=== PATIENT | female | born 1955 ===

== ENCOUNTER 2016-03-13 01:51 | Inpatient (IN) | payer OTHER ==
[2016-03-13] VITALS (8 sets, daily range): BP systolic 105–125; BP diastolic 69–80; PULSE 60–80; RESP 16–20; O2SAT 95–97
--- NOTE | 2016-03-13 04:00 | NUR ---
admission patient admitted. direct admit from [facility]. to room 16 in the ED. placed on remote telemetry. tele SR70's. bp stable. no ectopy. heparin infusing 1000 units / hour . as per physcian orders. patient anxious about plan of care, worried about her son's birthday later today. denies chest pain. up to bsc. gallo urine. purse and clothing at bedside. reviewed fall precautions, npo, and oriented to call medellin and bed. no questions.
[2016-03-13] MEDS ORDERED: CHOL200025 PO (04:16)
[2016-03-13] MEDS ORDERED: SERT25TA2 PO (04:16)
[2016-03-13] MEDS ORDERED: DESV25TA PO (04:16)
[2016-03-13] MEDS ORDERED: LIP40 PO (04:16)
[2016-03-13] MEDS ORDERED: LISI-571 PO (04:16)
[2016-03-13] MEDS ORDERED: Heparin 5,000 Unit/mL Inj IVPUSH ONE (05:30)
--- NOTE | 2016-03-13 05:34 | CONS ---
[address] [address] CONSULTATION REPORT PATIENT: AGUSTINA ETIENNE : 1955 MR# : [id number] ADMIT: 03/13/2016 JOB ID: [id number] CARDIOLOGY CONSULTATION NOTE--INITIAL CRITICAL CARE EVALUATION (EMERGENCY DEPARTMENT): DATE OF SERVICE: Sunday, March 13, 2016. EVALUATING PHYSICIAN: Cardiology--Juancho Muñoz MD. PROBLEMS: 1. Acute Coronary Syndrome (ACS): a. Chest pain--Sudden onset severe chest pain typical of cardiac ischemia. b. NSTEMI--Kth-PG-ceixypbzu myocardial infarction--Elevated troponin T= 3.99. 2. Coronary Artery Disease Risk Factors: a. No history of diabetes. b. History of hypertension--Treatment recently initiated. c. Hypercholesterolemia--Longstanding. d. Family history of premature coronary artery disease, mother and grandmother. e. NonSmoker--History of prior cigarette smoking; discontinued. 3. Other problems: a. Depression--Treated. CHIEF COMPLAINT: "STEMI--"Embedded Software Programmer Activation. HISTORY OF PRESENT ILLNESS: I came to the emergency department to see this 60-year-old woman as she arrived by EMS transfer from [facility] in [place], after transport for STEMI with label maker activation. The patient tells me she has no prior known cardiac history with the exception of a heart catheterization done at [facility] about 20 years ago that she says was done in the setting of high cholesterol; and she understands there was no problem found, and no intervention done. She has been well in the interim. She generally is vigorously active taking care of horses, including carrying hay, as she was today. In general, she has no cardiac symptoms, no effort related symptoms or effort limitation, except mild "asthma," for the last year in the cold weather, which is not limiting but occurs following exertion. PRESENTATION TODAY: She was well until about 3 p.m. this afternoon (12 hours ago) when she noted the onset of severe bandlike retrosternal "tightness," 8-9/10 intensity, while she was carrying hay for her horses. She was somewhat diaphoretic, and noted radiation to her jaw. There were no other associated symptoms of shortness of breath or dizziness. No radiation to the back. The discomfort lasted over 20 minutes, and resolved by the time she got to the emergency department. She had two to recurrent episodes of at least 10 minutes each with minor activities, such as getting up to go to the bathroom in the emergency department. Presently, she is pain free with the exception of mild discomfort of a different sort in her very lateral left-sided chest She was treated so far with ASA and Heparin IV Infusion. CARDIAC: From a cardiac point of view, I do not elicit other symptoms of angina or ischemia. She has no history of heart failure, or current symptoms of heart failure such as nocturnal dyspnea, or edema. She has no history of arrhythmia or current symptoms of arrhythmia such as TachyPalpitations, presyncope, or syncope. Regarding other possible underlying vascular disease, there is no history of CVA, or current symptoms of TIA. No claudication. Regarding possible dual antiplatelet therapy, she has no current bleeding symptoms, no anticipated surgery, and says she would be reliable to take mandatory medicines as needed. ALLERGIES: No known drug allergies. I elicit no allergy to medical contrast; or to seafood, fish or iodine. MEDICATIONS: 1. Pristiq for depression. 2. Lexapro for depression. 3. New medicine for hypertension--She does not know; the record indicates amlodipine. 4. Atorvastatin for hypercholesterolemia--She indicates well tolerated, but she does have substantial chronic neck, and shoulder aching. PAST MEDICAL HISTORY: As above: Trauma--A year ago she fell off a horse and had multiple fractures, including left clavicle, sternum, ribs; and also a concussion. She has recuperated well; but does not aim to go back to riding horses. REVIEW OF SYSTEMS: I questioned her about a 13-point review of systems, which is unremarkable, noncontributory or negative except as noted including: No history of thyroid disorder. No history of lung disorder--Except note question of some asthma induced by cold air in the last year. GI--She recently had an outpatient ultrasound for nausea and diarrhea that has been going on for several months. Otherwise, no history of hepatitis, jaundice, ulcers, or indigestion. PERSONAL AND SOCIAL HISTORY: Cigarettes--She stopped over 10 years ago after a pack a day for some years. No history or symptoms of COPD or chronic bronchitis. Alcohol--Occasional drink; but she reports that in the remote past she used alcohol heavily, but without sequelae; and she does not report withdrawal or DTs. Drugs--She reports in the remote past she used other drugs including cocaine. 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 FAMILY HISTORY: Premature coronary artery disease as noted above in the mother who had a heart attack in her 40s, and grandmother also. PHYSICAL EXAMINATION: General appearance: A very pleasant woman who is comfortable in the emergency department without chest pain. Vital signs: Blood pressure 145/80, note blood pressure as high as 150s earlier. Heart rate is 70, regular in sinus rhythm on telemetry. Respiratory rate 18, nonlabored. SpO2 98% on room air. Weight 230 pounds. Neurologic and mental status: No overt focal neurologic defect noted. She is alert, oriented, appropriate and conversant. HEENT: PERRL. Conjunctivae pink. Sclerae not icteric. Mouth and mucous membranes intact. Neck: Carotid upstroke intact bilaterally without bruit. Jugular venous pressure difficult to assess due to body habitus, but unremarkable. No palpable thyromegaly. No palpable cervical lymphadenopathy. Lungs: Clear to auscultation bilaterally. Note pursed lip breathing on forced expiratory maneuver; and without wheezes. CARDIAC: No chest wall tenderness, but tender over the lateral chest where she has some residual aching, but it does not exactly reproduce her discomfort. Otherwise, cardiac examination notable for S4 gallop. No murmur. Distant heart sounds. Abdomen: Obese, but otherwise unremarkable examination without tenderness, mass, hepatosplenomegaly or bruit of abdominal aortic aneurysm. Extremities: No edema. Pedal pulses intact at the bilateral dorsalis pedis. Note bilateral pulse is strong at the femoral; but at the right femoral there is a continuous murmur raising question of AV fistula. She is not sure if this is the site where she had her cath 20 years ago. DIAGNOSTIC STUDIES: ECG: The admitting ECG tracing here shows sinus rhythm at 87 BPM with a PVC. There are nonspecific ST-T wave changes diffusely, including T-wave inversion in V1 through V6, most prominent 2 mm in V2 and V3. Nonspecific Q-waves in V1/ V2. There is subtle, equivocal ST coving without ST-elevation in V1 through V4. Overall, no diagnostic ST-elevation. Note no confirmatory reciprocal ST-depression. ECG from admission in the [facility] at 15:26 yesterday afternoon, shows sinus rhythm and is unremarkable with the exception of somewhat peaked T-wave only in lead II, and Q-wave in V1 and V2, but no ST elevation. A third EKG from 23:00 on March 12, apparently at the time when elevated troponin was noted, does not have as much T-wave inversion in the anterior leads. Overall impression is abnormal ECG suggestive of ischemia in the anterior leads, but not diagnostic ST-elevation. Chest x-ray: The chest x-ray film is unremarkable from a cardiac point of view ; and without heart failure. LABORATORY: Current laboratory is pending. I reviewed the labs from [facility]: CBC includes WBC 8800, hemoglobin 12.9, hematocrit 39.5, normal indices, and platelet count 232,000. Chemistries include potassium 4.0, creatinine 0.7, BUN 12, glucose 92. LFT unremarkable. Initial CK total 77, with troponin I less than 0.05. BNP not elevated at 30. Subsequent troponin T elevated 3.99. D-dimer less than 0.27. ASSESSMENT: I discussed my findings, impressions and management considerations with the patient, as well as with her son and tksykain-py-iha(cop); and with the Hospitalist Service, Dr. Gutiérrez; and with the emergency department physician, includin). ACS--Acute coronary syndrome, xbu-TV-wejwuhh elevation myocardial infarction: This patient presented today with acute chest discomfort consistent with coronary ischemia. She has developed elevated troponin. There is a high likelihood of underlying active coronary disease. She was transferred emergently with a question of ST-elevation. The records available do not show ST-elevation. She is pain free and clinically stable now. ECG hints LAD territory ischemia. I discussed with her and her family the recommendation to be admitted to the hospital for urgent management of likely coronary disease. Management will include optimal medical therapy; and plan for early invasive approach with early catheterization. Cath: I discussed the catheterization procedure with them, including we discussed the benefit of catheterization to include definitive diagnosis and to guide treatment options, including medical therapy Intervention which is likely, and possible bypass surgery. We discussed possible risks and complications including bleeding, infection, blood clots; as well as injury to nerve, artery, vein, or kidney; and also arrhythmia, drug reaction--or Others. We discussed treatment as needed including surgery, pacemaker, transfusion. We discussed more serious complications that are possible including stroke, heart attack, , and emergency surgery including transfer for bypass surgery. We discussed PCI and Stents including need for repeat procedures; and mandatory DAPT. We did not sign informed consent in the emergency department currently. RECOMMENDATIONS: 1. Admit to Hospitalist Service. 2. OMT--Optimal medical therapy: Aspirin, IV heparin, statin, beta-anibal. Hold JAZMIN inhibitor currently prior to catheterization. 3. Echocardiogram in a.m. 4. Doppler ultrasound right leg early--considering femoral arteriovenous fistula. 5. Plan Cath, and anticipate PCI likely, in AM. AFIA
[2016-03-13] MEDS ORDERED: Polyethylene Glycol (PEG) 17 Gm Powder PO PRN (05:40)
[2016-03-13] MEDS ORDERED: Ondansetron 2 mg/mL 2 mL Inj IVPUSH PRN (05:40)
[2016-03-13] MEDS ORDERED: Alum-Mag Hydrox-Simeth 30 mL Suspension PO PRN (05:40)
[2016-03-13] MEDS ORDERED: Heparin 5,000 Unit/mL Inj IVPUSH PRN (05:45)
--- NOTE | 2016-03-13 05:51 | NUR ---
medication clarification spoke with dr oracio sandoval. hold heparin 5000 unit bolus. do not change current heparin rate (1000units) . wait until 1000am check. care ongoing
[2016-03-13] MEDS: Heparin 5,000 Unit/mL Inj IVPUSH PRN ×3 (06:09→22:08)
[2016-03-13 06:35] LABS: APPEARANCE,URINE CLEAR (CLEAR,HAZY); COLOR,URINE YELLOW (YELLOW); OCCULT BLOOD,URINE TRACE (NEGATIVE); UROBILINOGEN,URINE NORMAL (NORMAL)
[2016-03-13] MEDS: Heparin 25K Unit/500mL 0.45 NS 25,000 UNIT in IV Premix 1 EACH IV SCH ×2 (06:49→11:04)
--- NOTE | 2016-03-13 06:55 | NUR ---
communication dr oliveros called. ordered complete echo and ultrasound of right leg prior to laborer [place] this am. ordered echo as stat and called to nursing code enforcement supervisor left voice messages at departments Addendum: 03/13/16 at 0744 by BRI CARRILLO RN passed on to day heide abarca re echo stat. left messages with echo pagerKimo abarca will call cardiology water commissioner. Addendum: 03/13/16 at 0747 by BRI CARRILLO RN spoke to security technician. they will be here first to complete ultrasound of leg
--- NOTE | 2016-03-13 07:16 | PCM.HPMED ---
Subjective Date of Service Mar 13, 2016 Primary Provider: Admitting Physician: Matthew Feliz MD [facility] Attending Physician: Juan Carlos Gutiérrez MD Chief Complaint: chest pain History of Present Illness: Patient is a 60 year old female with a pmh of hyperlipidemia, hypertension, and depression that is presenting with a one day history of chest pain. Patient was moving hay in her yard when she had to stop due to overwhelming feelings of nausea. Patient went in her house and began to have intense chest pressure with pain radiating to her jaw and her arm. Patient became worried that this is something significant and called EMS to bring her to the hospital. Patient was moved to [facility] and patient was evaluated. Patient was not seen to have any EKG changes that would suggest acute ischemia. Patient additionally had a negative troponin level. Patient was monitored while an in patient, and when a second troponin was obtained the value was seen to be higher than the previous. This prompted the hospitalist from [facility] to call [facility] for transfer under the presumption that the patient had a STEMI. Patient was transferred here seen, to have a troponin level of .3 and no major ekg changes. Patient was seen by cardiology and the decision to admit the patient was made. The patient is currently stable, has no significant chest pain and is resting comfortably. Review of Systems: Patient has complaints of chest pressure, nausea, jaw pain, constipation and arm pain. Patient was denies any other symptoms when asked including headaches, oral pain , neck pain, shortness of breath. change in mentation, vomiting, diarrhea, joint pain, or urinary tract symptoms Allergies Coded Allergies: No Known Allergies (Unverified , 03/13/16) Home Medications atorvastatin 40 mg daily cholecalciferol 2000 units Desvenlafaxine succinate 25 mg daily lisinopril 5 mg daily sertraline 25 mg daily PMH hypertension hyperlipidemia depression Surgical History bilateral arthroscopies breast augmentation Family History negative for premature cardiac , no other relevent medical history Social History Hx Alcohol Use: Yes Alcoholic Drinks Per Day: 2-3/ounces monthly Hx Substance Use: No Exam Vital Signs Vital Sign - Last Date Time Temp Pulse Resp B/P Pulse Ox O2 Delivery O2 Flow Rate FiO2 03/13/16 05:16 74 03/13/16 04:30 36.5 16 125/80 97 Room Air Intake and Output 03/12/16 03/12/16 03/13/16 Cumulative From/Thru 15:00 23:00 07:00 03/13/16 04:42 - 03/13/16 04:50 Output Total 450 ml 450 ml Balance -450 ml -450 ml Output Urine Total 450 ml 450 ml Exam HEENT: NCAT, PERRLA, normal oral mucosa, no neck masses or ln CV: S1 and S2 noted, no murmurs rubs or gallops. Patient has a right femoral bruit present Pulm: CTA BL, no wheezes or ronchi, no cough Abd: Soft nontender, no masses or trauma noted Ext: Normal sensation and motor abilities, no edema noted Neuro: AAOX3, no focal neurological deficits seen, normal gait and motor ability Psych: No psychiatric symptoms upon questioning except for controlled depression Lab and Diagnostics Labs Pts labs from [facility] reviewed, no abnormalities noted except for an elevated troponin T of 3.1 X-Rays, CTs and MRIs Chest xray reviewed: No pathology noted 12-lead ECG EKG: NSR no evidence of st elevations 75 bpm Assessment & Plan Patient is a 60 year old female that is presenting with a one day history of chest pain, patient was subsequently transferred from [facility] for increased level of care. Patient is currently stable on heparin drip. Chest pain/NSTEMI - Patient has evidence of nstemi with no major ekg changes noted and an elevated troponin level - Patient evaluated by cardiology during the night due to the possibilty of STEMI - Will place the patient on heparin gtt, with q6 hour monitoring of ptt - will begin aspirin, high dose statin and beta anibal - will continue to trend troponins - Cardiology anticipating catherizing the patient in the afternoon - will hold tio-i for the time being Hypertension - Will hold amlodopine and lisinopril in favor of beta anibal for the time begin - will begin 12.5 mg daily given low bp and HR - will continue to trend bp Hyperlipidemia - Patient has an established diagnosis of hyperlipidemia - will start atorvastatin 80 mg Depression - patient has an established history of depression - pt has taken her medication for the day - will hold medication temporarily and resume after catherization Juan Carlos Gutiérrez MD Mar 13, 2016 06:41
[2016-03-13] MEDS: 0.9% Sodium Chloride 1,000 ML IV SCH ×2 (07:20→17:24)
[2016-03-13 07:44] LABS: BASOPHILS % (AUTO) 0.5 % (0-3); EOSINOPHILS % (AUTO) 1.7 % (0-5); MONOCYTES % (AUTO) 10.2 % (4-12); Mean Corpuscular Hemoglobin 28.6 pg (27.0-35.0); Mean Corpuscular Volume 86.1 fL (81-100); NEUTROPHILS % (AUTO) 57.2 % (40-74); Platelet Count 222 bil/L (150-400)
--- NOTE | 2016-03-13 08:42 | DRSVH ---
PROCEDURE: X-RAY CHEST ONE VIEW, PORTABLE ([id number]) INDICATIONS: 60 year-old female with chest pain. TECHNIQUE: One view of the chest was acquired. COMPARISON: None. FINDINGS: Surgical changes and devices: None. Lungs and pleura: No pleural effusions or pneumothorax. Lungs are clear, except for several calcifi ed bilateral pulmonary granulomas. Mediastinum: Mediastinal contours appear normal. Heart size is normal. Bones and chest wall: No suspicious bony lesions. Nonacute left third through fifth rib fractures a re present. Acute lateral left clavicle fracture is also present, with mild displacement. Overlying s oft tissues appear unremarkable. IMPRESSION: 1. No acute cardiopulmonary disease. Pulmonary remote granulomatous disease. 2. Acute lateral left clavicle fracture, as well as several nonacute left lateral rib fractures. Dictated by: Skyler Arredondo M.D. on 03/13/2016 at 8:40 Approved by: Skyler Arredondo M.D. on 03/13/2016 at 8:40
--- NOTE | 2016-03-13 09:40 | DRSVH ---
[facility] [address] [place] [address] Echocardiogram Report Name: AGUSTINA ETIENNE KStudy Date: Height: 69 in Hospital Exam Location: [facility] Weight: 231 lb Gender: Female BSA: 2.2 m2 : 1955 Age: 60 yrs BP: 113/79 mm Hg Reason For Study: Angina Performed By: Sangita Hill Referring Physician: HARDY THOMPSON Interpretation Summary Normal sinus rhythm. Normal LV size, wall thickness. There is basal anteroseptal, mid- anteroseptal, distal septal and apical akinesis. Other segments show normal wall motion. EFis 55-60%. Stage I diastolic dysfunction. No significant valvular abnormalities. No prior study available for comparison Procedure: A two-dimensional transthoracic echocardiogram with color flow and Doppler was performed. The study quality was technically adequate. There is no prior echocardiogram noted for this patient. The patient was in normal sinus rhythm during the exam. Left Ventricle: The left ventricle is normal in size. There is normal left ventricular wall thickness. The ejection fraction is estimated to be 50-55%. There is apical inferior wall akinesis. There is apical akinesis. There is apical septal wall akinesis. The E/A ratio is reversed, suggesting impaired early relaxation of the left ventricle or a reduced preload state. Right Ventricle: The right ventricle is normal in size and function. Atria: The left atrium is moderately dilated. The right atrium is mildly dilated. The interatrial septum is intact with no evidence for an atrial septal defect. Mitral Valve: The mitral valve leaflets appear borderline thickened, but open well. There is trace mitral regurgitation. Aortic Valve: The aortic valve is trileaflet. The aortic valve opens well. There is trace aortic regurgitation. Tricuspid Valve: The tricuspid valve leaflets are thin and pliable. There is moderate to severe tricuspid regurgitation. The right ventricular systolic pressure is estimated at 41 mmHg assuming a right atrial pressure of 3 mm Hg. Pulmonic Valve: The pulmonic valve is normal in structure and function. There is trace pulmonic regurgitation. Great Vessels: The aortic root is mildly dilated. The ascending aorta is moderately enlarged. The IVC is of normal diameter and collapses greater than 50% with a sniff. This suggests a low right atrial pressure of 3 mm Hg. Pericardium/ Pleura There is no pericardial effusion. There is no pleural effusion. MMode/2D Measurements & Calculations LVIDd: 4.9 cm LA dimension: 3.8 cm RA long axis Ao root diam: 3.9 cm LVIDs: 3.0 cm Aortic Jxn: 3.6 cm FS: 38.0 % LA A2 area: 27.7 cm RA area asc Aorta Diam IVSd: 0.85 cm LA A4 area: 27.8 cm LVPWd: 0.61 cm LA length (vol) : 25.8 cm Ao Arch Diam RA vol (Proximal trans.) LA vol: 102.3 ml : 82.7 ml LA vol index RA : 37.7 mm2 IVC diam: 2.0 cm LV phipps. diameter/BSALV sys. diameter/BSA (cm/m^2): 2.2 (cm/m^2): 1.4 Doppler Measurements & Calculations Ao V2 max MV E max jose e MV E/A: 0.79 TR max jose e : 134.6 cm/sec : 60.6 cm/sec Med Peak E' Jose E : 310.0 cm/sec Ao max PG MV A max jose e TR max PG : 7.2 mmHg : 77.0 cm/sec E/E' med: 12.0 : 38.4 mmHg Ao mean PG MV P1/2t: 52.2 msec Lat Peak E' Jose E PA V2 max : 4.1 mmHg : 91.2 cm/sec E/E' lat: 6.0 PA mean PG PA Accel Time : 0.14 sec MV dec time MV P1/2t max jose e Ao V2 mean PA V2 mean : 0.18 sec : 97.6 cm/sec : 60.3 cm/sec Ao V2 VTI: 32.5 cm MVA(P1/2t): 4.2 cm2 Reading Physician:09:40 AM
[2016-03-13] MEDS ORDERED: Heparin 1,000 Unit/mL 10 mL Inj ONE ×2 (10:17→11:44)
[2016-03-13] MEDS ORDERED: Heparin 5,000 Units/500 mL NS Premix IV ONE ×2 (10:17→11:44)
[2016-03-13] MEDS ORDERED: Nitroglycerin 50,000 mcg/250 mL D5W Premix IV ONE ×2 (10:17→11:44)
[2016-03-13] MEDS ORDERED: 0.9% Sodium Chloride 0 ML ONE (10:18)
[2016-03-13] MEDS ORDERED: Heparin 1,000 Units/500 mL NS Premix IV ONE ×2 (10:20→11:44)
--- NOTE | 2016-03-13 10:39 | NUR ---
Social Work note - Initial Assessment Venessa Pulido is a 60 yr old who was transferred from [facility] for Non Stemi. EMR reviewed: Pt has Group Health insurance, her PCP is Adalgisa Rowell at [facility]. Readmit score not available. See attached CM initial assessment. [employer] met with pt - introduced D/C planning and explained SW role. Pt lives at home with her son and daughter in law. She is independent at baseline, no DME. She plans to go home at d/c with no anticipated needs. She does not have a DPOA - [employer] provided paperwork and educated on filling it out. She states she will talk with her family about it and will provide copies in the future. No needs identified. [employer] will follow if needs arise. Plan: Home with transportation provided by family - no needs identified. HILLARY Harp Addendum: 03/13/16 at 1042 by ROSANGELA CARDONA SS Amended: Links added.
[2016-03-13] MEDS ORDERED: fentaNYL-PF 50 mCg/mL 2 mL Inj ONE (10:41)
--- NOTE | 2016-03-13 10:54 | DRSVH ---
PROCEDURE: US DUPLEX DOPPLER UNILATERAL LEG ARTERIES, RIGHT INDICATIONS: bruit over the femoral artery TECHNIQUE: Color and pulse Doppler interrogation was performed of the right lower extremity arterial system, wit h image documentation. COMPARISON: None. FINDINGS: Vascular Ultrasound Procedure Report Findings(Artery of Lower Extremity)(Right) Common Femoral Artery(Distal) Velocity: 74 cm/s Profunda Femoris Artery(Proximal) Velocity: 71 cm/s Superficial Femoral Artery(Proximal) Velocity: 73 cm/s Superficial Femoral Artery(Mid-longitudinal) Velocity: 79 cm/s Superficial Femoral Artery(Distal) Velocity: 76 cm/s Popliteal Artery(Mid-longitudinal) Velocity: 65 cm/s Posterior Tibial Artery(Distal) Velocity: 81 cm/s Dorsalis Pedis Artery(Distal) Velocity: 109 cm/s The common femoral artery demonstrates low resistant flow pattern with increased diastolic velocity. There is a connection between the common femoral artery and most likely the common femoral vein just above the femoral artery bifurcation, consistent with AV fistula. IMPRESSION: 1. 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 2. No high-grade arterial stenosis in the right lower extremity. Dictated by: Cherelle Nieto M.D. on 03/13/2016 at 10:52 Approved by: Cherelle Nieto M.D. on 03/13/2016 at 10:52
[2016-03-13] MEDS ORDERED: hydrALAZINE 20 mg/mL Inj ONE (11:35)
[2016-03-13] MEDS ORDERED: 0.9% Sodium Chloride 1,000 ML ONE (11:44)
--- NOTE | 2016-03-13 13:18 | DRSVH ---
PROCEDURE: CT ANG CHEST/ABD W/WO CONTRAST ([id number]) INDICATIONS: chest pain TECHNIQUE: Precontrast 5 mm thick sections acquired from the lung apices to the iliac crests. After the adminis tration of intravenous contrast, 3 mm thick sections again acquired from the lung apices to the iliac crests. 3-dimensional maximum intensity projection (MIP) oblique sagittal and coronal reformats wer e then acquired, and/or 3-dimensional volume rendering reformats. For radiation dose reduction, the following was used: automated exposure control. COMPARISON: None. FINDINGS: Image quality: Excellent. AORTA: There is no evidence of dissection within the thoracic or abdominal aorta. There is mild aneurysmal d ilation of the ascending thoracic aorta measuring 45 mm in greatest transverse dimension. The abdomin al aorta demonstrates mild scattered areas of wall calcification consistent with atherosclerotic dise ase. No abdominal aortic aneurysmal dilation. CHEST: Lungs and pleura: No acute airspace opacities. No pleural effusions or pneumothorax. Central and p eripheral airways are patent and normal in caliber. Calcified granuloma is present along the right m inor fissure, as well as the posterior left upper lobe.. Mediastinum: Heart size is normal. No pericardial effusion. No mediastinal or hilar adenopathy by size criteria. Central pulmonary arteries are normal in size. Esophagus is normal in caliber. No h iatal hernias. Bones and chest wall: No axillary adenopathy by size criteria. Thyroid gland is unremarkable. No s uspicious bony lesions. No vertebral body compression fractures. ABDOMEN: Vasculature: Celiac trunk and mesenteric arteries are patent. Renal arteries are also patent. Solid organs: Liver and spleen are normal in size. Hepatic steatosis is present. Gallbladder has bee n removed. Biliary system is non dilated. Pancreas enhances normally. No adrenal nodules. Both ki dneys are normal in size and enhancement, without hydronephrosis. Peritoneum and bowel: No free fluid or air. Bowel loops are normal in caliber and wall thickness. Nodes and vessels: No retroperitoneal or mesenteric adenopathy by size criteria. Inferior vena cava is normal in morphology. Bones: No suspicious bony lesions. No vertebral body compression fractures. Miscellaneous: No ventral hernias. IMPRESSION: 1. No evidence of aortic dissection. 2. Mild aneurysmal dilation of the ascending thoracic aorta as above. The above findings were discussed with Dr. Muñoz on 03/13/16 at 1:10 PM. Dictated by: Taylor Fernandez M.D. on 03/13/2016 at 13:16 Approved by: Taylor Fernandez M.D. on 03/13/2016 at 13:16
--- NOTE | 2016-03-13 15:49 | PROG NOTE ---
[address] [address] PROGRESS NOTE PATIENT: AGUSTINA ETIENNE : 1955 MR#: [id number] ADMIT: 03/13/2016 JOB ID: [id number] CARDIOLOGY PROGRESS NOTE -- FOLLOW-UP INPATIENT CONSULTATION: DATE: Sunday, March 13, 2016. EVALUATING PHYSICIAN: Cardiology -- Juancho Muñoz MD. PROBLEMS: ACS NSTEMI. SUBJECTIVE: I saw this 60-year-old woman on cardiology rounds this morning after she was admitted about 6 hours ago. Overall, in the interim, her clinical status has been satisfactory, and she has been stable. No further chest discomfort, or clinical ischemic issues. She remains on medical therapy including IV heparin, aspirin, statin and beta-anibal. OBJECTIVE: She is comfortable, pleasant, remains boarding in the emergency department. EXAM: Vital signs stable with blood pressure 124/71, heart rate 64 and regular, in sinus on telemetry. Physical examination otherwise unchanged and unremarkable including regarding heart and lungs. ELECTROCARDIOGRAM: The follow-up ECG this morning is similar but the nonspecific anterior STT abnormalities are less prominent. LABORATORY: Fpollowup labs after admission here include satisfactory CBC; and satisfactory chemistry profile. Note total CK only 170, with CK-MB 10.1, and troponin 0.293 c/w clinical impression of NSTEMI. ECHOCARDIOGRAM: I reviewed the echo images preliminarily. She has intact LV size and low normal/borderline global LV systolic ejection fraction, with ejection fraction about 50% to 55%. There is a wall motion defect with hypokinesis and akinesis of the apex, distal inferior wall; and mid to distal septum -- consistent with the anticipated LAD distribution of her ischemia. No significant valvular disease. Note moderate aortic dilatation with maximum diameter of the ascending aorta 4.6 cm. ULTRASOUND OF RIGHT LOWER EXTREMITY: The report of the procedure confirms the clinical impression of right femoral AV fistula. Suspect it may be from her catheterization procedure years ago. IMPRESSION: I discussed her status today and our plans going forward--with her and with her sister who was present--includin. [id number] myocardial infarction -- clinically stable on optimal medical therapy. 2. Right femoral arteriovenous fistula. 3. Aortic root dilatation. I discussed with her plan to do a CT angiogram of the aorta to assess for maximum aortic dilatation and to rule out acute dissection in view of her presentation with severe chest discomfort which did not otherwise clinically raise specific suspicion of dissection. I discussed with Radiology who tells me substantial contrast will be needed( 200cc). Will plan to defer catheterization from today to tomorrow as long as she remains stable; or to proceed earlier if her clinical status changes. RECOMMENDATION: 1. Catheterization and anticipated coronary intervention in a.m. 2. CT angiogram today. 3. CT angiogram -- I reviewed with Radiology the maximum diameter of the aorta is 4.5 cm. No aortic dissection. Discussed with the Hospitalist Service. AFIA
--- NOTE | 2016-03-13 16:02 | NUR ---
transfer to [facility] report called to Christine Campos RN at 1500hrs. transferred to room 2021 at 1555hrs. Tele box placed on patient. patient denies CP/SOB.
--- NOTE | 2016-03-13 17:47 | NUR ---
Heparin gtt/ambulation Patient arrived to unit in a stable condition. Vital signs within normal limits, patient on RA, no reports of pain, no n/v/d/c or abdominal pain, alert and oriented x3, independent in room, uses call light appropriately. Heparin gtt currently infusing at 1125 units per hour per protocol. No signs of bleeding noted. 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
--- NOTE | 2016-03-13 17:48 | PCM.PNMED ---
Subjective Date of Service Mar 13, 2016 Subjective Venessa Pulido is a 60 year old female with a history of hypertension, hyperlipidemia and depression transferred from [facility] for elevated troponin and possible NSTEMI. Hospital day #1. Patient is resting comfortably and somewhat frustrated that she remains in the Emergency Department, as there are no available beds on the floor. Currently she is without chest pain or palpitations and denies shortness of breath, headache, fever, chills, GI or symptoms. Plan for CT angio to evaluate aortic aneurysm and plan for cardiac cath tomorrow. Exam Vital Signs Vital Sign - Last Date Time Temp Pulse Resp B/P Pulse Ox O2 Delivery O2 Flow Rate FiO2 03/13/16 05:16 74 03/13/16 04:30 36.5 16 125/80 97 Room Air Intake and Output 03/12/16 03/12/16 03/13/16 Cumulative From/Thru 15:00 23:00 07:00 03/13/16 04:42 - 03/13/16 04:50 Output Total 450 ml 450 ml Balance -450 ml -450 ml Output Urine Total 450 ml 450 ml Exam General: No acute distress, well-developed, well-nourished, appropriately interactive HEENT: Normocephalic, atraumatic. PERRLA, Anicteric sclerae, moist mucosa. Neck: Supple, nontender, no jugular venous distension, no bruits, no lymphadenopathy or thyromegaly. Cardiovascular: Regular rate and rhythm with no murmurs, rubs, or gallops appreciated Pulmonary: Clear to auscultation bilaterally with no crackles, wheezes, or rhonchi. Normal respiratory effort with no use of accessory muscles. Abdomen: Bowel tones present. Soft, nontender, nondistended. No hepatosplenomegaly or masses appreciated. Extremities: No clubbing, cyanosis, edema, or lymphadenopathy appreciated. Skin: Normal temperature, turgor, and texture; no rash, ulcers, or subcutaneous nodules appreciated. Neurological: Cranial nerves grossly intact. Normal muscle strength, tone, and bulk. No known gait impairment. Psychiatric: Normal mood and affect. Alert and oriented to person, place, and time. IVs and Medications Medications Reviewed: Medications were reviewed in detail Lab and Diagnostics Urine Color Yellow, Urine Appearance Clear, Urine pH 6.0, Urine Specific [place] 1.015, Urine Protein Negative, Urine Glucose (UA) Negative, Urine Ketones Negative, Urine Occult Blood Trace, Urine Nitrite Negative, Urine Bilirubin Negative, Urine Urobilinogen Normal, Urine Leukocyte Esterase Small, Urine RBC 3-10, Urine WBC 11-50, Urine Epithelial Cells Moderate, Urine Crystals None seen, Urine Bacteria None, Urine Hyaline Casts None, Urine Granular Casts None seen, Urine Waxy Casts None seen, Urine Red Blood Cell Casts None seen, Urine White Blood Cell Casts None seen, Urine Mucus Present, Urine Trichomonas None seen, Urine Yeast None, Urine Culture Reflexed Indicated , Hold Urine Received White Blood Count 7.5, Red Blood Count 4.40, Hemoglobin 12.6, Hematocrit 37.9, Mean Corpuscular Volume 86.1, Mean Corpuscular Hemoglobin 28.6, Mean Corpuscular Hemoglobin Concent 33.2, Red Cell Distribution Width 13.0, Platelet Count 222, Neutrophils (%) (Auto) 57.2, Lymphocytes (%) (Auto) 30.3, Monocytes ( %) (Auto) 10.2, Eosinophils (%) (Auto) 1.7, Basophils (%) (Auto) 0.5 Sodium Level 140, Potassium Level 4.3, Chloride Level 103, Carbon Dioxide Level 25, Blood Urea Nitrogen 9, Creatinine 0.60, Estimat Glomerular Filtration Rate 146, Glucose Level 98, Calcium Level 8.8, Total Bilirubin 0.8, Aspartate Amino Transf (AST/SGOT) 40, Alanine Aminotransferase (ALT/SGPT) 35, Alkaline Phosphatase 64, Total Creatine Kinase 170, Creatine Kinase MB 10.1, Creatine Kinase MB % 5.9, Total Protein 7.1, Albumin 3.8, Hold Robertson Top Tube Received Activated Partial Thromboplast Time 56.5, Troponin T 0.208 Result Diagram: 03/13/16 0725 Microbiology Urine culture pending. X-Rays, CTs and MRIs X-RAY CHEST ONE VIEW, PORTABLE (03/13/16) IMPRESSION: 1. No acute cardiopulmonary disease. Pulmonary remote granulomatous disease. 2. Acute lateral left clavicle fracture, as well as several nonacute left lateral rib fractures. Dictated and approved by: Skyler Arredondo M.D. on 03/13/2016 at 8:40 US DUPLEX DOPPLER UNILATERAL LEG ARTERIES, RIGHT (03/13/16) IMPRESSION: 1. 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 2. No high-grade arterial stenosis in the right lower extremity. Dictated and approved by: Cherelle Nieto M.D. on 03/13/2016 at 10:52 CT ANG CHEST/ABD W/WO CONTRAST (03/13/16) IMPRESSION: 1. No evidence of aortic dissection. 2. Mild aneurysmal dilation of the ascending thoracic aorta as above. The above findings were discussed with Dr. Muñoz on 03/13/16 at 1:10 PM. Dictated and approved by: Taylor Fernandez M.D. on 03/13/2016 at 13:16 12-lead ECG EKG: NSR no evidence of st elevations 75 bpm Cardiac Echo Impressions ECHOCARDIOGRAM REPORT (03/13/16) INTERPRETATION SUMMARY: - Normal sinus rhythm. - Normal LV size, wall thickness. There is basal anteroseptal, mid-anteroseptal , distal septal and apical akinesis. Other segments show normal wall motion. EFis 55-60%. Stage I diastolic dysfunction. - No significant valvular abnormalities. - No prior study available for comparison Assessment & Plan Venessa Pulido is a 60 year old female with a history of hypertension, hyperlipidemia and depression transferred from [facility] for elevated troponin and possible NSTEMI. Hospital day #1. 1. Possible NSTEMI, acute. present on admission. Active. -Patient's CAD risk factors: hypertension, hyperlipidemia, and family Hx of premature CAD -Elevated troponin (3.9) and ECG suggestive of ischemia in the anterior leads, but not diagnostic ST-elevation. -Started on heparin drip with q6h monitoring of PTT. -Hold ACEi prior to cath and continue aspirin, statin, beta anibal. -Continue to trend troponins -Cardiology consulted and following. Possible catheterization this afternoon. -Echocardiogram and venous doppler ultrasound today 2. Chronic Hypertension, present on admission. Active -Hold amlodopine and lisinopril in favor of beta anibal -Continue with 12.5mg daily due to low BP and HR. 3. Chronic Hyperlipidemia, present on admission. Active. -Patient has an established diagnosis of hyperlipidemia -Continue Atorvastatin 80mg daily. 4. Chronic Depression, present on admission. Active. -Resume home dosing of medications following cardiac cath -Home medication- Sertraline, 25mg daily and Desvenlafaxine succinate 25mg daily. Acetaminophen-fever/headache/mild/moderate pain Antiemetics, as needed Bowel regimen, as needed. Disposition: Anticipated discharge in 1-2 days pending cardiac cath. Pain Evaluation: Adequate Pain Control VTE Prophylaxis: SCDs Resuscitation Status: CPR: Attempt Resuscitation Attending Statement The patient was seen and examined together with Dr. Gates on 03-13-16 and I agree with the history, exam and plan as outlined in the note above. Kavitha Gates DO Mar 13, 2016 08:24 Barron Carlin MD Mar 14, 2016 15:16
[2016-03-14] VITALS (35 sets, daily range): BP systolic 91–134; BP diastolic 46–80; PULSE 56–80; RESP 10–20; O2SAT 92–99
[2016-03-14 03:33] LABS: BASOPHILS % (AUTO) 0.5 % (0-3); EOSINOPHILS % (AUTO) 3.6 % (0-5); MONOCYTES % (AUTO) 10.6 % (4-12); Mean Corpuscular Hemoglobin 28.8 pg (27.0-35.0); Mean Corpuscular Volume 87.1 fL (81-100); NEUTROPHILS % (AUTO) 46.5 % (40-74); Platelet Count 201 bil/L (150-400)
[2016-03-14] MEDS: 0.9% Sodium Chloride 1,000 ML IV SCH ×3 (04:04→23:03)
[2016-03-14] MEDS: Heparin 25K Unit/500mL 0.45 NS 25,000 UNIT in IV Premix 1 EACH IV SCH (05:09)
--- NOTE | 2016-03-14 06:25 | NUR ---
Shift Note 7p-7a No c/o chest pain, Tele SR 60-70s per Fixing Machine Operator. VS stable and afebrile. Pt up independently in room, gait steady, denies dizziness or lightheadedness while up. Pt compliant with NPO status after midnight for planned Heart Cath this AM. IV Heparin drip infusing per protocol and within therapeutic limits. IV NS infusing per MD orders. Pt given Heart Cath booklets for education on procedure.
[2016-03-14] MEDS: DESVENLAFAXINE 25 MG PO SCH (08:30)
[2016-03-14] MEDS ORDERED: 0.9% Sodium Chloride 1,000 ML ONE (10:16)
[2016-03-14] MEDS ORDERED: Heparin 1,000 Units/500 mL NS Premix IV ONE ×2 (10:16→11:38)
[2016-03-14] MEDS ORDERED: Heparin 5,000 Units/500 mL NS Premix IV ONE ×3 (10:16→12:56)
[2016-03-14] MEDS ORDERED: fentaNYL-PF 50 mCg/mL 2 mL Inj ONE ×4 (10:37→14:20)
[2016-03-14] MEDS ORDERED: Nitroglycerin 50,000 mcg/250 mL D5W Premix IV ONE (11:02)
[2016-03-14] MEDS ORDERED: Heparin 1,000 Unit/mL 10 mL Inj ONE (11:32)
[2016-03-14] MEDS ORDERED: NitroPRUSSIDE 25,000 mCg/mL 2 mL Inj IV ONE (13:06)
[2016-03-14] MEDS ORDERED: Dextrose 5% 250 ML IV ONE (13:06)
[2016-03-14] MEDS ORDERED: 0.9% Sodium Chloride 500 ML ONE (13:13)
--- NOTE | 2016-03-14 14:14 | PCM.PNMED ---
Subjective Date of Service Mar 14, 2016 Subjective Venessa Pulido is a 60 year old female with a history of hypertension, hyperlipidemia and depression transferred from [facility] for elevated troponin and possible NSTEMI. Hospital day #2 No acute events overnight. Per nursing, patient asymptomatic overnight with normal sinus on telemetry and NPO after midnight for cardiac catheterization this morning. Today, patient is resting comfortably and appears somewhat nervous about the cardiac cath this morning. She states that she has remained asymptomatic and without chest pain or back pain, palpitations, shortness of breath, nausea or diaphoresis since prior to admission. Exam Vital Signs Vital Sign - Last Date Time Temp Pulse Resp B/P Pulse Ox O2 Delivery O2 Flow Rate FiO2 03/14/16 13:45 62 11 107/61 96 Room Air 03/14/16 09:59 36.7 Intake and Output 03/13/16 03/13/16 03/14/16 Cumulative From/Thru 15:00 23:00 07:00 03/13/16 04:42 - 03/14/16 04:38 Intake Total 1402 ml 1509 ml 2911 ml Output Total 550 ml 1450 ml 2450 ml Balance 852 ml 59 ml 461 ml Intake Oral 400 ml 600 ml 1000 ml IV Total 1002 ml 909 ml 1911 ml Output Urine Total 550 ml 1450 ml 2450 ml # Bowel Movements 1 0 1 Exam General: No acute distress, well-developed, well-nourished, appropriately interactive HEENT: Normocephalic, atraumatic. PERRLA, Anicteric sclerae, moist mucosa. Neck: Supple, nontender, no jugular venous distension, no bruits, no lymphadenopathy or thyromegaly. Cardiovascular: Regular rate and rhythm with no murmurs, rubs, or gallops appreciated Pulmonary: Clear to auscultation bilaterally with no crackles, wheezes, or rhonchi. Normal respiratory effort with no use of accessory muscles. Abdomen: Bowel tones present. Soft, nontender, nondistended. No hepatosplenomegaly or masses appreciated. Extremities: No clubbing, cyanosis, edema, or lymphadenopathy appreciated. Skin: Normal temperature, turgor, and texture; no rash, ulcers, or subcutaneous nodules appreciated. Neurological: Cranial nerves grossly intact. Normal muscle strength, tone, and bulk. No known gait impairment. Psychiatric: Normal mood and affect. Alert and oriented to person, place, and time. IVs and Medications Medications Reviewed: Medications were reviewed in detail Lab and Diagnostics Troponin T 0.175 White Blood Count 5.9, Red Blood Count 4.17, Hemoglobin 12.0, Hematocrit 36.3, Mean Corpuscular Volume 87.1, Mean Corpuscular Hemoglobin 28.8, Mean Corpuscular Hemoglobin Concent 33.1, Red Cell Distribution Width 13.2, Platelet Count 201, Neutrophils (%) (Auto) 46.5, Lymphocytes (%) (Auto) 38.6, Monocytes ( %) (Auto) 10.6, Eosinophils (%) (Auto) 3.6, Basophils (%) (Auto) 0.5 Sodium Level 142, Potassium Level 4.1, Chloride Level 106, Carbon Dioxide Level 22, Blood Urea Nitrogen 11, Creatinine 0.56, Estimat Glomerular Filtration Rate 158, Glucose Level 103, Calcium Level 9.1, Total Bilirubin 0.5, Aspartate Amino Transf (AST/SGOT) 34, Alanine Aminotransferase (ALT/SGPT) 33, Alkaline Phosphatase 59, Total Protein 6.0, Albumin 3.4 Activated Partial Thromboplast Time 47.1 Result Diagram: 03/14/16 0320 03/14/16 0320 Microbiology Urine culture growing Group B Streptococcus. X-Rays, CTs and MRIs X-RAY CHEST ONE VIEW, PORTABLE (03/13/16) IMPRESSION: 1. No acute cardiopulmonary disease. Pulmonary remote granulomatous disease. 2. Acute lateral left clavicle fracture, as well as several nonacute left lateral rib fractures. Dictated and approved by: Skyler Arredondo M.D. on 03/13/2016 at 8:40 US DUPLEX DOPPLER UNILATERAL LEG ARTERIES, RIGHT (03/13/16) IMPRESSION: 1. 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 2. No high-grade arterial stenosis in the right lower extremity. Dictated and approved by: Cherelle Nieto M.D. on 03/13/2016 at 10:52 CT ANG CHEST/ABD W/WO CONTRAST (03/13/16) IMPRESSION: 1. No evidence of aortic dissection. 2. Mild aneurysmal dilation of the ascending thoracic aorta as above. The above findings were discussed with Dr. Muñoz on 03/13/16 at 1:10 PM. Dictated and approved by: Taylor Fernandez M.D. on 03/13/2016 at 13:16 US DUPLEX DOPPLER UNILATERAL LEG ARTERIES, RIGHT (03/14/16) IMPRESSION: 1. 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 2. No high-grade arterial stenosis in the right lower extremity. Dictated and approved by: Cherelle Nieto M.D. on 03/13/2016 at 10:52 12-lead ECG EKG: NSR no evidence of st elevations 75 bpm Cardiac Echo Impressions ECHOCARDIOGRAM REPORT (03/13/16) INTERPRETATION SUMMARY: - Normal sinus rhythm. - Normal LV size, wall thickness. There is basal anteroseptal, mid-anteroseptal , distal septal and apical akinesis. Other segments show normal wall motion. EFis 55-60%. Stage I diastolic dysfunction. - No significant valvular abnormalities. - No prior study available for comparison Assessment & Plan Venessa Pulido is a 60 year old female with a history of hypertension, hyperlipidemia and depression transferred from [facility] for elevated troponin and possible NSTEMI. Hospital day #2. 1. Probable NSTEMI, acute. present on admission. Active. -Patient's CAD risk factors: hypertension, hyperlipidemia, and family Hx of premature CAD -Elevated troponin and ECG suggestive of ischemia in the anterior leads, but not diagnostic ST-elevation. -Continued heparin drip with q6h monitoring of PTT overnight and held ACEi prior to cath. -Troponin trended down, most recent 0.175 -Echocardiogram shows basal anteroseptal, mid-anteroseptal, distal septal and apical akinesis. EF 55-60%. -Duplex Ultrasound, right lower ext- shows an AV fistula between the common femoral artery and most likely common femoral vein. Likely from prior cath. -Cardiac catheterization today, per Cardiology. -Continue aspirin, statin, beta anibal 2. Chronic Hypertension, present on admission. Active -Hold amlodopine and lisinopril in favor of beta anibal -Continue with 12.5mg daily due to low BP and HR. 3. Chronic Hyperlipidemia, present on admission. Active. -Patient has an established diagnosis of hyperlipidemia -Continue Atorvastatin 80mg daily. 4. Chronic Depression, present on admission. Active. -Resume home dosing of medications -Home medication- Sertraline, 25mg daily and Desvenlafaxine succinate 25mg daily. Acetaminophen-fever/headache/mild/moderate pain Antiemetics, as needed Bowel regimen, as needed. Disposition: Anticipated discharge in 1-2 days pending cardiac cath. . Pain Evaluation: Adequate Pain Control VTE Prophylaxis: SCDs VTE Mechanical Devices: Intermittant Pneumatic CD Resuscitation Status: CPR: Attempt Resuscitation Attending Statement The patient was seen and examined together with Dr. Gates on 03-14-15 and I agree with the history, exam and plan as outlined in the note above. Patient is on prn morphine IV prn pain, and was on a hepatin drip early in the morning Kavitha Gates DO Mar 14, 2016 14:14 Barron Carlin MD Mar 15, 2016 12:37
[2016-03-14] MEDS ORDERED: fentaNYL-PF 50 mCg/mL 2 mL Inj IVPUSH PRN (14:35)
--- NOTE | 2016-03-14 15:47 | PROG NOTE ---
[address] [address] PROGRESS NOTE PATIENT: AGUSTINA ETIENNE : 1955 MR#: [id number] ADMIT: 03/13/2016 JOB ID: [id number] CARDIOLOGY PROGRESS NOTE -- FOLLOW-UP INPATIENT CONSULTATION: DATE: March. CONSULTING PHYSICIAN: Cardiology--Juancho Muñoz MD. PROBLEMS: ACS -- NSTEMI PCI--LAD Distal. SUBJECTIVE: Hospital Day-2: I saw Ms. Etienne, along with her Sister, on Cardiology rounds this morning. She has been in the hospital just over 24 hours after presenting with apparent coronary artery disease with chest pain, elevated troponin and nonspecific anterior ST-T abnormalities. HOSPITAL COURSE: She has been clinically stable without recurrent chest pain on medical therapy consisting of aspirin, heparin IV infusion, statin and beta-anibal. Yesterday, she had Echocardiogram that showed an anteroapical wall motion defect with akinesis consistent with our clinical impression of a likely LAD culprit lesion. The Echo identified moderate aortic dilatation -- 46 mm. She underwent a CT angiogram to evaluate the rest of the aorta and for maximum aortic dilatation including to exclude surgical findings. The maximum diameter of the ascending aorta is about 4.5 mm. Catheterization was deferred until today to allow hydration after contrast media. OBJECTIVE: : EXAMINATION: She is comfortable. Vital signs stable. ASSESSMENT: Clinically stable and is stable for catheterization today. I discussed her hospital course and our ongoing findings and plans with her and her Ssister. We again rediscussed the catheterization procedure including risks and complications. After discussion and questions, she signed informed consent to proceed. Earlier, we had discussed dual antiplatelet therapy including mandatory platelet inhibitors. We discussed stents including the possibility of stent failure and repeat procedures. RECOMMENDATIONS: Cardiac catheterization to define coronary anatomy; and to guide treatment options including medical therapy; PCI; or bypass. AFIA
--- NOTE | 2016-03-14 16:16 | CS94 ---
[address] [address] DIAGNOSTIC CARDIAC CATHETERIZATION PATIENT: AGUSTINA ETIENNE : 1955 MR #: [id number] ADMIT: 03/13/2016 JOB ID: [id number] PROCEDURE NOTE -- CARDIAC CATHETERIZATION LABORATORY: SERVICE DATE: March. PICK REMOVER: Juancho Muñoz MD. PROCEDURES: 1. Coronary Angiogram -- Urgent. 2. LHC (Left Heart Catheterization)--LVED; and Pullback. 3. Percutaneous Coronary Intervention (PCI): a. DARION (Drug-Eluting Stent) of diffuse Distal LAD culprit lesion -- Resolute 2.25 x 18 mm; then Resolute 2.5 x 23 mm; then Resolute 2.25 x 12 mm stents. CLINICAL DETAILS: This 60-year-old woman presents to the Catheterization Laboratory for coronary angiogram after she was admitted with chest pain, and ACS (Acute Coronary Syndrome) with NSTEMI--Including chest pain and elevated troponin. ECG showed subtle nonspecific anterior changes. Echo shows anteroapical akinesis. PROCEDURAL DETAILS: I discussed our findings, impressions and management considerations with the patient and her Family members including recommendation to proceed with urgent cardiac catheterization to define anatomy and guide treatment choices including medical therapy, Intervention, or Bypass surgery. We discussed the procedure including possible risks, and complications. We discussed bleeding, infection and blood clot; as well as injury to nerve, artery, vein, or kidney. We discussed arrhythmia, drug reaction--Or Others. We discussed treatment as needed including pacemaker, surgery, or transfusion. We discussed more serious complications that are possible including stroke, heart attack, , and emergency surgery including transfer for bypass surgery. We discussed stents including stent failure, and need for reintervention early or late; as well as need for mandatory dual antiplatelet therapy. After discussion and questions, she signed informed consent to proceed. CORONARY ANGIOGRAM: She was brought to the Catheterization Laboratory, where she was prepped sterilely, and draped. There was a continuous murmur at the right femoral area; and ultrasound had shown an AV fistula there(lpossibly related to a remote prior cath). Access was selected on the left side. Arterial access was obtained without difficulty in the left common femoral artery using fluoroscopic localization over the femoral head; and modified Seldinger technique to insert a 10 cm 6-Malawian side-arm sheath. Catheters were advanced and exchanged over a long 0.035-inch J-tipped Guidewire. Echo had showed a dilated aorta of 4.6 mm, which was confirmed by a CT scan. Therefore, a JL-5 catheter was selected to image the left coronary artery which engaged the artery well. Next, the right coronary artery was imaged using a 6-Malawian JR-4 diagnostic catheter. LHC (Left Heart Catheterization): The left ventricle was entered with a pigtail catheter; and LVED with Pullback was recorded. PCI OF DISTAL LAD: The diagnostic images were reviewed. There is a long, severely diffusely diseased segment of the Distal LAD nearing the apex. The appearance is suggestive of dissection. It is considered a highly suboptimal site for Intervention, given dissection, distal location, marked tortuosity, and small vessel size at that site. I discussed with Interventional cardiology colleague Dr. Leon. We considered Bypass surgery and medical therapy, and Intervention. Bypass surgery of the distal small LAD seemed unfavorable. Medical therapy is not likely to be satisfactory, given the severe diffuse lesion, and acute presentation. Decision was made to proceed with Interventional treatment at increased risk. For the Intervention she had been treated with Aspirin and a loading dose of prasugrel 60 mg p.o. Procedural anticoagulation was achieved with bolus heparin doses to achieve therapeutic ACT. The left coronary artery was engaged for Intervention with a 6-Malawian Voda -4.0 catheter, which engaged with the Left Coronary Artery well. The tortuous Left Coronary Artery and diffuse distal lesion were crossed without difficulty using a BMW Wire -- 0.014 inches x 190 cm -- which was placed in the LAD at the [place]. PREDILATATION: The severe diffuse lesion at the treatment site was pre-dilated with several inflations of a Trek Balloon -- 2.0 x 15 mm -- inflated to 6 atmospheres. The artery appeared improved. STENTS: Next, the treatment site was stented. Drug-eluting stents were chosen to help improve long-term patency, given the small-sized, diffuse lesion and the long area to be to be treated. First, a Resolute Integrity Stent -- 2.25 x 18 mm -- was placed at the distal end of the lesion and deployed at 16 atmospheres. Then, a second Resolute Integrity stent -- 2.25 x 23 mm -- was deployed more proximally overlapping the first stent; and deployed at 16 atmospheres. Finally, a third stent was placed proximally overlapping the second stent to fully cover the diseased segment -- Resolute Integrity 2.5 x 12 mm -- and deployed at 18 atmospheres. There was an excellent angiographic appearance in the stented segment. However, there was slow flow distally. I considered distal stent edge dissection, and propagation of dissection given the initial underlying pathology. No reflow and spasm are also considered. Aliquots of NTG IC were used. I inflated a balloon across the segment, and flow was somewhat improved. Nitroprusside 100 mg IC was also given with some improved flow in the very distal apical portions of the LAD. Given the small size of the artery at this point, I elected not to try to treat it further with further stenting; and with anticipation of possible spontaneous healing. There is an excellent final result in the proximal stented segment with JESSE-3 flow; and no residual lesion. Flow in the apical portion of the LAD is present, but slow. The patient tolerated the procedure well without any chest pain, ECG changes, or other problem. Procedure without difficulty. Patient tolerated procedure well. Complication: Note suboptimal angiographic result in high risk lesion in Distal LAD; but without clinical sequelae--and note clinical success, including Echo shows near complete resolution of stephen-apical wall motion defect. A side-arm sheath angiogram showed adequate access in the right common femoral artery with access just below the inferior epigastric artery. Arterial hemostasis was deferred, and the sheath was sutured in place to be maintained to flush and arterial transducer until removed when ACT lower. The patient was transferred in stable condition, and pain free, from the Catheterization Laboratory to the [facility] for ongoing care including by the primary Hospitalist Service. I discussed the procedure, findings, and management considerations with the patient, with her Family including her Sister; with the Hospitalist team; and with Cardiology. FINDINGS: 1. LMCA: The Left Main Coronary Artery is a long vessel with no angiographic obstructive lesion. 2. LAD: The Left Anterior descending Coronary Artery is a transapical vessel with moderate size after giving off a large high first Diagonal. There is a long segment of severe diffuse subtotal 95% disease in the Distal LAD before the apex. The artery is very tortuous. There may be faint collaterals from RPDA to LAD territory. 3. LCX: The Left Circumflex Coronary Artery is a moderate to large-sized nondominant vessel with no angiographic obstructive disease. 4. RCA: Right dominant. The Right Coronary Artery is a large vessel with a large RV branch, small PDA, and a moderate to large-sized Right Posterolateral Branch. 5. LHC: LVED=15 mmHg; and no systolic gradient across AoV on Pullback. CONCLUSIONS: 1. Urgent PCI with DARION of small, diffusely diseased segment of Distal LAD. 2. Acute Coronary Syndrome (ACS) -- NSTEMI (Ucb-EW-Vsregysic Myocardial Infarction)--Diffuse distal left anterior descending culprit with dissection. 3. Coronary Artery Disease (CAD) -- Single-Vessel CAD of small distal left anterior descending. RECOMMENDATIONS: 1. ECASA -- Indefinitely. 2. Prasugrel -- Plan one year if well tolerated with ongoing Cardiology follow-up; and to reassess at one year to consider prasugrel indefinitely given the long stented segment, and diffuse disease. I discussed with the patient and her Sister regarding the critical importance of mandatory dual antiplatelet therapy; and not to stop Prasugrel for any reason without immediate Cardiology consultation. 3. OMT -- Guideline-directed optimal medical therapy including aspirin, prasugrel, statin, beta-anibal; and consideration of JAZMIN inhibitor. AFIA
--- NOTE | 2016-03-14 17:21 | NUR ---
Social Work: Screen D: Per EMR review, pt is a 60 year old female admitted for NON Stemi. Pt is [employer] insurance. PCP Is [facility]. NOK is Dc Pulido. Advanced directives not completed but information offered to pt. Readmit score is low, 1/. Pt underwent cardiac cath today. MD anticipates possible discharge home tomorrow pending clinical course. A: Pt lives in [place] and is I at baseline. P: Anticipate pt to discharge home via POV; no sw needs or barriers identified at this time. [facility] to continue to follow if needs arise. BERNADETTE Fox
--- NOTE | 2016-03-14 18:16 | NUR ---
Off unit/medications/assessments Patient left for label coder at approx 0945 and has remained in [facility] for the remainder of the shift. Pain and other q4/q8/q12 assessments scheduled could not be performed due to patient being off unit. Patient had AM meds (0830) that were not yet verified prior to be taken to label coder at 0945 and therefor have not been given. As of 1700, patient still had catheter sheath in groin site and per [facility] nurse, patient unable to take anything orally at this time until sheath is removed for safety reasons. MD Gates consulted, will follow up with either day shift RN or NOC RN.
--- NOTE | 2016-03-14 19:35 | NUR ---
[facility] POST HEART CATH PT RECEIVED FROM [employer] COMPENSATION CLAIMS SUPERVISOR AT 1345. LEFT GROIN WITH SHEATH IN PLACE. PT AWARE OF LIMITATIONS TO MOVEMENT AND IS COMPLIANT. VS DONE Q15MIN PER PROTOCOL. NS INFUSING 100ML/HR. SHEATH WAS PULLED BY CORPORATE LEGAL INTERN AT 1739 AND PRESSURE WAS HELD BY TECH UNTIL 1805. LEFT GROIN HAS REMAINED UNCHANGED, NO BLEEDING OR HEMATOMA NOTED. SLIGHT BRUISING NOTED; LEFT DP 1-2+. 2W CLARKE CATHETER WAS PLACED WITHOUT DIFFICULTY. 900ML OBTAINED. PT IS TAKING FLUIDS AND MEAL WELL. Addendum: 03/14/16 at 2020 by PATO WESTFALL RN PT AND HER NURSING CARE WERE TRANSFERRED AT 1999 BACK TO ROOM 2021. RN TO RN BEDSIDE HANDOFF WAS DONE WITH SUNDEEP Montero RN. LEFT GROIN HAS REMAINED SOFT, NO BLEEDING OR HEMATOMA. TELE IN PLACE. BEDREST UNTIL 199.
[2016-03-14] MEDS ORDERED: 0.9% Sodium Chloride 400 ML (4 HRS) IV ONE (20:40)
[2016-03-14] MEDS ORDERED: Atropine 1 mg/10 mL (Code) Syringe IVPUSH PRN (20:40)
[2016-03-14] MEDS ORDERED: 0.9% Sodium Chloride 250 ML BOLUS IV PRN (20:40)
[2016-03-14] MEDS ORDERED: Ondansetron 2 mg/mL 2 mL Inj IVPUSH PRN (20:40)
[2016-03-14] MEDS ORDERED: Sodium Chloride LOK Flush 10 mL Syringe IVFLUSH PRN (20:40)
[2016-03-15] VITALS (9 sets, daily range): BP systolic 100–114; BP diastolic 63–73; PULSE 66–79; RESP 16–18; O2SAT 94–97
--- NOTE | 2016-03-15 06:45 | NUR ---
S/P Heart Cath S/P heart cath, No c/o chest pain, Tele SR 70-80's with T-Wave inversion lead II per Collar Setter Overlock. Left Groin site dressing intact, no drainage noted, no hematoma. Pedal pulses are weak to palpation bilaterally. Pt denies abdomen or flank pain. Hypotensive with SBP's 90's and low 100's. Pt had nausea with small emisis after arriving to [facility] from [facility], Pt medicated with Zofran and nausea resolved. Patton draining clear yellow urine to gravity. Pt on bedrest with left leg still till 0200. Pt did not get up overnight.
[2016-03-15] MEDS: 0.9% Sodium Chloride 1,000 ML IV SCH ×2 (08:29→19:20)
[2016-03-15] MEDS: DESVENLAFAXINE 25 MG PO SCH (08:29)
--- NOTE | 2016-03-15 14:25 | NUR ---
Cardiac NSR 80s with occasional PVC, per pvc monitor. Left Groin site dressing intact, no drainage noted, no hematoma. Dr. Muñoz removed dsg this morning. Site has small amt bruising, no oozing. Pedal pulses are weak to palpation bilaterally. Patton d/c'd, pt voiding in the bathroom. Up independently in room, denies dizziness, gait steady. Ambulated in hallway, steady. Pt OK to be independent in wright. Denies CP/Pressure. Tolerating heart healthy diet, denies nausea. VSS. LS clear, slightly dim in bases, on RA. D/C tomorrow, per Cardiology.
--- NOTE | 2016-03-15 15:08 | PROG NOTE ---
[address] [address] PROGRESS NOTE PATIENT: AGUSTINA ETIENNE : 1955 MR#: [id number] ADMIT: 03/13/2016 JOB ID: [id number] CARDIOLOGY CONSULTATION PROGRESS NOTE -- FOLLOW-UP INPATIENT EVALUATION: DATE: Tuesday, March 15, 2016. CONSULTING PHYSICIAN: Cardiology -- Juancho Muñoz MD. PROBLEMS: ACS -- NSTEMI PCI of distal LAD culprit lesion. SUBJECTIVE: Hospital Day-3: I saw this 60-year-old woman on Cardiology rounds this morning, Friday, March 15, 2016 after she presented with severe acute chest pain; and nonspecific ECG; and elevated troponin. HOSPITAL COURSE: In the interim she has done well. Yesterday, she had catheterization, which confirmed LAD culprit lesion for her clinical syndrome. Interestingly, it was a diffuse, severe, long lesion in the distal LAD. She had PCI with three stents over the long lesion. She did well post catheterization including no chest pain, good urine output; and she is just beginning to re-ambulate today, saying she feels very well. OBJECTIVE: EXAMINATION: VSS. Good UO. Extremities: The left femoral access site is fully intact with minor superficial ecchymoses. No hematoma, pulsatile mass,or bruit noted; and distal perfusion, and pulses intact in the left lower extremity. ECG: The post catheterization ECG shows precordial anterolateral T-wave inversion. LABORATORY: Labs unremarkable and specifically, creatinine is intact. ASSESSMENT: ACS(Acute coronary syndrome) -- NSTEMI: Percutaneous coronary intervention of distal left anterior descending. She is doing very well and asymptomatic and re-ambulating without difficulty. She is on a good medical regimen including aspirin, prasugrel, statin, and beta- anibal; and an angiotensin-converting enzyme inhibitor can be considered later after having contrast recently. I discussed her underlying condition, her hospital course, and the findings, as well as her medical regimen, recuperation, activity, prescription again with her, as we did yesterday. We discussed the critical importance of mandatory dual platelet anti-therapy--including not to stop prasugrel for any reason without immediate cardiology consultation. RECOMMENDATION: 1. Re-Ambulate today. 2. Anticipate discharge in a.m. if stable. 3. Echocardiogram today. 4. Ao Dilatation noted--Suggest serial follow-up, including CT. Discussed with Hospitalist Service. Later in the day, her daughter and a different sister were present; and we re- discussed these issues as well. ECHOCARDIOGRAM: I reviewed the preliminary images of the echocardiogram. It is very reassuring to see the wall motion defect substantially improved after Intervention -- especially in view of the initially slow flow in the apical part of the LAD distal to the lesion. Compared to the initial echocardiogram, the mid anterior hypokinesis is less prominent, and the apex is substantially improved. There is only a residual small focal area of inferoapical, and apical lateral hypokinesis present now. MTDD
--- NOTE | 2016-03-15 15:21 | DRSVH ---
[facility] [address] [place] [address] Echocardiogram Report Name: AGUSTINA ETIENNE KStudy Date: Height: 69 in Hospital Exam Location: [facility] Weight: 237 lb Gender: Female BSA: 2.2 m2 : 1955 Age: 60 yrs BP: 107/70 mmHg Reason For Study: NSTEMI, S/P HRT CATH, EVAL LV FX History: CO,PTCA Ordering Physician: DR. Giovanni THOMPSON Performed By: Leticia Smyth Referring Physician: [facility], DR. Chay GONZALEZ Interpretation Summary The left ventricle is normal in size. The ejection fraction is estimated to be 55-60%. Compared to the prior exam, the left ventricular function is improved. Compared to the prior exam, the apical wall motion abnormality is improved. The right ventricle is mildly dilated. The right ventricular systolic function is normal. Color doppler across the valves were not done in this study. Procedure: This is a limited echocardiogram performed to evaluate systolic ventricular function. The study quality was technically adequate. Comparison is made with the echocardiogram of 03-13-2016. The patient was in normal sinus rhythm during the exam. Left Ventricle: The left ventricle is normal in size. There is normal left ventricular wall thickness. The ejection fraction is estimated to be 55-60%. Compared to the prior exam, the left ventricular function is improved. There is apical inferior wall hypokinesis. Compared to the prior exam, the apical wall motion abnormality is improved. Mid to distal septum appears to be moderately hypokinetic. Spectral Doppler of the mitral valve is reversed, with an E/A wave ratio < 1.0. Right Ventricle: The right ventricle is mildly dilated. The right ventricular systolic function is normal. Mitral Valve: There is mild mitral annular calcification. Aortic Valve: The aortic valve is trileaflet. The aortic valve opens well. Tricuspid Valve: The tricuspid valve leaflets are thin and pliable. Pulmonic Valve: The pulmonic valve is not well seen, but is grossly normal. Pericardium/ Pleura There is no pericardial effusion. There is no pleural effusion. MMode/2D Measurements & Calculations LVIDd LV phipps. diameter/BSA (cm/m^2) LV sys. diameter/BSA (cm/m^2) : 4.6 cm LVIDs : 3.4 cm FS: 26.7 % IVSd: 1.0 cm LVPWd : 1.0cm Doppler Measurements & Calculations MV E max juancho: 68.3 cm/sec MV E/A: 0.91 MV P1/2t max juancho: 69.0 cm/sec MV A max juancho: 74.9 cm/sec MV P1/2t: 70.0 msec MVA(P1/2t): 3.1 cm2 Reading Physician:NICOLE
--- NOTE | 2016-03-15 19:19 | PCM.PNMED ---
Subjective Date of Service Mar 15, 2016 Subjective Venessa Pulido is a 60 year old female with a history of hypertension, hyperlipidemia and depression transferred from [facility] for elevated troponin and possible NSTEMI. Hospital day #3 No acute events overnight. Per nursing, patient stable following cardiac cath with normal sinus rhythm and occasional PVCs noted on telemetry. Left femoral cath site with dressing intact, no drainage and no hematoma. Patient is doing well this morning. She endorses fatigue and mild soreness in her left groin but denies chest pain, shortness of breath, nausea, vomiting, diarrhea or constipation. Exam Vital Signs Vital Sign - Last Date Time Temp Pulse Resp B/P Pulse Ox O2 Delivery O2 Flow Rate FiO2 03/15/16 12:17 36.7 66 16 109/70 97 Room Air Intake and Output 03/14/16 03/14/16 03/15/16 Cumulative From/Thru 15:00 23:00 07:00 03/13/16 04:42 - 03/15/16 06:44 Intake Total 600 ml 975 ml 4486 ml Output Total 900 ml 825 ml 4175 ml Balance -300 ml 150 ml 311 ml Intake Oral 275 ml 1275 ml IV Total 600 ml 700 ml 3211 ml Output Urine Total 900 ml 825 ml 4175 ml # Bowel Movements 1 Exam General: No acute distress, well-developed, well-nourished, appropriately interactive HEENT: Normocephalic, atraumatic. PERRLA, Anicteric sclerae, moist mucosa. Neck: Supple, no jugular venous distension, no bruits, no lymphadenopathy or thyromegaly. Cardiovascular: Regular rate and rhythm with no murmurs, rubs, or gallops appreciated Pulmonary: Clear to auscultation bilaterally with no crackles, wheezes, or rhonchi. Normal respiratory effort with no use of accessory muscles. Abdomen: Bowel tones present. Soft, nontender, nondistended. No hepatosplenomegaly or masses appreciated. Extremities: No clubbing, cyanosis, edema, or lymphadenopathy appreciated. Skin: Normal temperature, turgor, and texture; no rash, ulcers, or subcutaneous nodules appreciated. Neurological: Cranial nerves grossly intact. Normal muscle strength, tone, and bulk. No known gait impairment. Psychiatric: Normal mood and affect. Alert and oriented to person, place, and time. IVs and Medications Medications Reviewed: Medications were reviewed in detail Lab and Diagnostics White Blood Count 7.3, Red Blood Count 3.83, Hemoglobin 11.1, Hematocrit 33.7, Mean Corpuscular Volume 88.0, Mean Corpuscular Hemoglobin 29.0, Mean Corpuscular Hemoglobin Concent 32.9, Red Cell Distribution Width 13.2, Platelet Count 203 Sodium Level 141, Potassium Level 3.9, Chloride Level 106, Carbon Dioxide Level 22, Blood Urea Nitrogen 10, Creatinine 0.52, Estimat Glomerular Filtration Rate 172, Glucose Level 89, Calcium Level 8.4 Result Diagram: 03/15/1630903/15/16309 Microbiology Urine culture growing Group B Streptococcus. X-Rays, CTs and MRIs X-RAY CHEST ONE VIEW, PORTABLE (03/13/16) IMPRESSION: 1. No acute cardiopulmonary disease. Pulmonary remote granulomatous disease. 2. Acute lateral left clavicle fracture, as well as several nonacute left lateral rib fractures. Dictated and approved by: Skyler Arredondo M.D. on 03/13/2016 at 8:40 US DUPLEX DOPPLER UNILATERAL LEG ARTERIES, RIGHT (03/13/16) IMPRESSION: 1. 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 2. No high-grade arterial stenosis in the right lower extremity. Dictated and approved by: Cherelle Nieto M.D. on 03/13/2016 at 10:52 CT ANG CHEST/ABD W/WO CONTRAST (03/13/16) IMPRESSION: 1. No evidence of aortic dissection. 2. Mild aneurysmal dilation of the ascending thoracic aorta as above. The above findings were discussed with Dr. Muñoz on 03/13/16 at 1:10 PM. Dictated and approved by: Taylor Fernandez M.D. on 03/13/2016 at 13:16 US DUPLEX DOPPLER UNILATERAL LEG ARTERIES, RIGHT (03/14/16) IMPRESSION: 1. 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 2. No high-grade arterial stenosis in the right lower extremity. Dictated and approved by: Cherelle Nieto M.D. on 03/13/2016 at 10:52 12-lead ECG EKG: NSR no evidence of st elevations 75 bpm Cardiac Echo Impressions ECHOCARDIOGRAM REPORT (03/13/16) INTERPRETATION SUMMARY: - Normal sinus rhythm. - Normal LV size, wall thickness. There is basal anteroseptal, mid-anteroseptal , distal septal and apical akinesis. Other segments show normal wall motion. EFis 55-60%. Stage I diastolic dysfunction. - No significant valvular abnormalities. - No prior study available for comparison Additional Diagnostics DIAGNOSTIC CARDIAC CATHETERIZATION (03/14/16). Juancho Muñoz MD. FINDINGS: 1. LMCA: The left main coronary artery is a long vessel with no angiographic disease. 2. LAD: The left anterior descending coronary artery is a transapical vessel with moderate size after giving off a large high first diagonal. There is a long segment of severe diffuse 95% disease in the distal LAD before the apex. The artery is very tortuous. 3. LCX: The left circumflex coronary artery is a moderate to large-sized nondominant vessel with no angiographic obstructive disease. 4. RCA: Right dominant. The right coronary artery is a large vessel with a large RV branch, small PDA and a moderate to large-sized right posterolateral branch. There may be faint collaterals from the RPDA towards the LAD. CONCLUSIONS: 1. Urgent percutaneous coronary intervention with drug-eluting stents to treat long, small, diffusely diseased segment of distal left anterior descending. 2. Acute coronary syndrome (ACS) -- [id number] myocardial infarction (NSTEMI); diffuse distal left anterior descending disease. Culprit identified. 3. Coronary artery disease (coronary artery disease) -- single-vessel coronary disease of small distal left anterior descending. RECOMMENDATIONS: 1. ECASA -- indefinitely. 2. Prasugrel -- plan one year if well tolerated with ongoing cardiology followup; and to reassess at one year to consider prasugrel indefinitely given the long stented segment and diffuse disease. 3. OMT -- guideline-directed optimal medical therapy including aspirin, prasugrel, statin, beta-anibal and consideration of JAZMIN inhibitor. . Assessment & Plan Venessa Pulido is a 60 year old female with a history of hypertension, hyperlipidemia and depression transferred from [facility] for elevated troponin and possible NSTEMI. Hospital day #3. 1. Acute NSTEMI. Present on admission. Active. -Elevated troponin and ECG suggestive of ischemia in the anterior leads. -Echo showing basal anteroseptal, mid-anteroseptal, distal septal and apical akinesis. 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 -Now s/p percutaneous coronary intervention of left anterior descending, per Cardiology and patient doing well. -Continue aspirin, statin, beta anibal. -Cardiology recommending, initiating ACEi post discharge and Cardiac Rehab. 2. Chronic Hypertension, present on admission. Active -Continue to hold lisinopril in favor of beta anibal. -Pt will need to initiate ACEi therapy post-discharge. -Continue with Metoprolol tartrate 12.5mg daily . 3. Chronic Hyperlipidemia, present on admission. Active. -Patient has an established diagnosis of hyperlipidemia -Continue Atorvastatin 80mg daily. 4. Chronic Depression, present on admission. Active. -Resume home dosing of medications -Home medication- Sertraline, 25mg daily and Desvenlafaxine succinate 25mg daily. Acetaminophen-fever/headache/mild/moderate pain Antiemetics, as needed Bowel regimen, as needed. Disposition: Anticipated discharge tomorrow with close follow up with Cardiology and Cardiac Rehab. Pain Evaluation: Adequate Pain Control VTE Prophylaxis: SCDs VTE Mechanical Devices: Intermittant Pneumatic CD Resuscitation Status: CPR: Attempt Resuscitation Attending Statement The patient was seen and examined together with Dr. Pulido on 03-15-16 and I agree with the history, exam and plan as outlined in the note above. Kavitha Gates DO Mar 15, 2016 13:33 Barron Carlin MD Mar 16, 2016 16:45
[2016-03-16 03:48] VITALS: BP 113/69; PULSE 73; RESP 18; O2SAT 97
[2016-03-16 04:37] LABS: Mean Corpuscular Hemoglobin 28.2 pg (27.0-35.0); Mean Corpuscular Volume 87.3 fL (81-100)
[2016-03-16] MEDS: 0.9% Sodium Chloride 1,000 ML IV SCH (05:20)
[2016-03-16 05:31] VITALS: PULSE 75
--- NOTE | 2016-03-16 07:32 | NUR ---
Cardiac VSS. Left groin site C/D/I without apparent complications. Pt anticipating D/C to home today if appropriate.
[2016-03-16 07:50] VITALS: BP 109/71; PULSE 80; RESP 20; O2SAT 100
[2016-03-16] MEDS: DESVENLAFAXINE 25 MG PO SCH (08:28)
[2016-03-16 08:30] VITALS: BP 117/78; PULSE 69; RESP 18; O2SAT 96
[2016-03-16] MEDS ORDERED: ATOR40TA69 PO (09:07)
[2016-03-16] MEDS ORDERED: NITR0.4T SL (09:07)
[2016-03-16] MEDS ORDERED: METO25TA6 PO (09:07)
[2016-03-16] MEDS ORDERED: ASPI-973 PO (09:09)
[2016-03-16] MEDS ORDERED: PRAS10TA5 PO ×2 (09:09→10:52)
--- NOTE | 2016-03-16 09:13 | PCM.DIMED ---
Danae Robertson DO 03/16/16 0912: Discharge Instructions Date of Service Mar 16, 2016 Dates of Hospitalization Mar 13, 2016 at 02:22 Discharge Diagnosis Discharge Diagnosis Acute NSTEMI, present on admission. Resolved. Chronic hypertension, present on admission. Stable. Chronic hyperlipidemia, present on admission. Stable. Chronic depression, present on admission. Stable. . Medication Instructions New medications: Prasugrel 10 mg daily. Aspirin 81 mg daily. Atorvastatin 80 mg each bedtime. Metoprolol tartrate 12.5 mg daily. Nitroglycerin 0.4 mg sublingual every 5 minutes for chest pain. Continued medications: Vitamin D 3 2000 units daily. Pristiq ER 25 mg daily. Sertraline 25 mg daily. Discontinued medications: Atorvastatin 40 mg daily. Lisinopril 5 mg daily. Your having symptoms of acid reflux you may take famotidine or ranitidine as directed on the label at night. . Diet Low fat, Low Sodium, Heart Healthy Activity Limited until seen by PCP Call your provider Shortness of breath, Chest pain, Weakness (unilateral) Patient Instructions Follow-up plan Please follow-up closely with your PCP, Dr. Marie, in the next 1-2 weeks regarding your hospitalization. You will need to discuss restarting your lisinopril or equivalent medication in this class for hypertension (ACEI/ARB). You will also need to establish care with a boats renter, Dr. Kelly, within the next 4 weeks regarding your heart attack. . Follow-up Provider: [facility] Follow-up with PCP in: 1 week Provider: Janet Kelly MD Follow-up in: 4 weeks Barron Carlin MD 03/25/16 0827: Discharge Instructions Attending's Statement The patient was seen and examined together with Dr. Robertson on 03-16-16 and I agree with the history, exam and plan as outlined in the note above. Danae Robertson DO Mar 16, 2016 09:12 Barron Carlin MD Mar 25, 2016 08:27
[2016-03-16 09:56] VITALS: PULSE 70
--- NOTE | 2016-03-16 12:31 | NUR ---
Discharge: Pt s/p heart cath with stent to LAD, L groin site is stable, some bruising noted but no s/s of hematoma. Tele SR, VSS, RA O2 sats 95%. Up ad newton in room, no gait instability noted. Given care notes r/t new prescriptions and heart cath, extensive discussion of all med changes. Pt to schedule follow up appts with PCP in 1-[address] Kelly in 4 weeks. IVs d/c'd intact. D/c'd home with all personal belongings, sister providing transport.
--- NOTE | 2016-03-16 15:44 | NUR ---
Social Work Discharge D: EMR reviewed. Pt is on day 3 of hospitalization for Non Stemi. Pt is medically stable and discharging home today via POV. NO discharge needs identified prior to discharge. A: Pt who is independent at baseline P: Pt is medically stable and discharging home today via POV. NO discharge needs identified prior to discharge. BERNADETTE Botello
--- NOTE | 2016-03-16 17:16 | PCM.DC.MED ---
Discharge Summary Date of Service Mar 16, 2016 Dates of Hospitalization Date of Hospital Admission Mar 13, 2016 at 02:22 Date of Discharge: Mar 16, 2016 Providers: Admitting Physician: Matthew Feliz MD Primary Care Physician: [facility] Attending Physician: Juan Carlos Gutiérrez MD Diagnosis at Time of Discharge Diagnosis at Time of Discharge Acute NSTEMI, present on admission. Resolved. Chronic hypertension, present on admission. Stable. Chronic hyperlipidemia, present on admission. Stable. Chronic depression, present on admission. Stable. . Consultations Cardiology, Dr. Juancho Muñoz. . Procedures XRay, CTs & MRIs X-RAY CHEST ONE VIEW, PORTABLE (03/13/16) IMPRESSION: 1. No acute cardiopulmonary disease. Pulmonary remote granulomatous disease. 2. Acute lateral left clavicle fracture, as well as several nonacute left lateral rib fractures. Dictated and approved by: Skyler Arredondo M.D. on 03/13/2016 at 8:40 US DUPLEX DOPPLER UNILATERAL LEG ARTERIES, RIGHT (03/13/16) IMPRESSION: 1. 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 2. No high-grade arterial stenosis in the right lower extremity. Dictated and approved by: Cherelle Nieto M.D. on 03/13/2016 at 10:52 CT ANG CHEST/ABD W/WO CONTRAST (03/13/16) IMPRESSION: 1. No evidence of aortic dissection. 2. Mild aneurysmal dilation of the ascending thoracic aorta as above. The above findings were discussed with Dr. Muñoz on 03/13/16 at 1:10 PM. Dictated and approved by: Taylor Fernandez M.D. on 03/13/2016 at 13:16 US DUPLEX DOPPLER UNILATERAL LEG ARTERIES, RIGHT (03/14/16) IMPRESSION: 1. 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 2. No high-grade arterial stenosis in the right lower extremity. Dictated and approved by: Cherelle Nieto M.D. on 03/13/2016 at 10:52 ECG 12 Lead EKG: NSR no evidence of st elevations 75 bpm Cardiac Echo Impression ECHOCARDIOGRAM INTERPRETATION SUMMARY: - Normal sinus rhythm. - Normal LV size, wall thickness. There is basal anteroseptal, mid-anteroseptal , distal septal and apical akinesis. Other segments show normal wall motion. EFis 55-60%. Stage I diastolic dysfunction. - No significant valvular abnormalities. - No prior study available for comparison Echocardiogram Interpretation Summary: The left ventricle is normal in size. The ejection fraction is estimated to be 55-60%. Compared to the prior exam, the left ventricular function is improved. Compared to the prior exam, the apical wall motion abnormality is improved. The right ventricle is mildly dilated. The right ventricular systolic function is normal. Color doppler across the valves were not done in this study. Reading Physician:NICOLE . Invasive Procedures PROCEDURES: 1. Coronary angiogram -- urgent. 2. Percutaneous coronary intervention: Resolute drug-eluting stent (DARION) of diffuse distal left anterior descending culprit lesion -- Resolute 2.25 x 18 mm; then Resolute 2.5 x 23 mm; then Resolute 2.25 x 12 mm stents. FINDINGS: 1. LMCA: The left main coronary artery is a long vessel with no angiographic disease. 2. LAD: The left anterior descending coronary artery is a transapical vessel with moderate size after giving off a large high first diagonal. There is a long segment of severe diffuse 95% disease in the distal LAD before the apex. The artery is very tortuous. 3. LCX: The left circumflex coronary artery is a moderate to large-sized nondominant vessel with no angiographic obstructive disease. 4. RCA: Right dominant. The right coronary artery is a large vessel with a large RV branch, small PDA and a moderate to large-sized right posterolateral branch. There may be faint collaterals from the RPDA towards the LAD. CONCLUSIONS: 1. Urgent percutaneous coronary intervention with drug-eluting stents to treat long, small, diffusely diseased segment of distal left anterior descending. 2. Acute coronary syndrome (ACS) -- [id number] myocardial infarction (NSTEMI); diffuse distal left anterior descending disease. Culprit identified. 3. Coronary artery disease (coronary artery disease) -- single-vessel coronary disease of small distal left anterior descending. RECOMMENDATIONS: 1. ECASA -- indefinitely. 2. Prasugrel -- plan one year if well tolerated with ongoing cardiology followup; and to reassess at one year to consider prasugrel indefinitely given the long stented segment and diffuse disease. I discussed with the patient and her sister mandatory importance of dual antiplatelet therapy; and not to stop prasugrel for any reason without immediate cardiology consultation. 3. OMT -- guideline-directed optimal medical therapy including aspirin, prasugrel, statin, beta-anibal and consideration of JAZMIN inhibitor. Juancho Muñoz MD 03/14/16 1434 . Other Diagnostics DIAGNOSTIC CARDIAC CATHETERIZATION (03/14/16). Juancho Muñoz MD. FINDINGS: 1. LMCA: The left main coronary artery is a long vessel with no angiographic disease. 2. LAD: The left anterior descending coronary artery is a transapical vessel with moderate size after giving off a large high first diagonal. There is a long segment of severe diffuse 95% disease in the distal LAD before the apex. The artery is very tortuous. 3. LCX: The left circumflex coronary artery is a moderate to large-sized nondominant vessel with no angiographic obstructive disease. 4. RCA: Right dominant. The right coronary artery is a large vessel with a large RV branch, small PDA and a moderate to large-sized right posterolateral branch. There may be faint collaterals from the RPDA towards the LAD. CONCLUSIONS: 1. Urgent percutaneous coronary intervention with drug-eluting stents to treat long, small, diffusely diseased segment of distal left anterior descending. 2. Acute coronary syndrome (ACS) -- yth-[id number] myocardial infarction (NSTEMI); diffuse distal left anterior descending disease. Culprit identified. 3. Coronary artery disease (coronary artery disease) -- single-vessel coronary disease of small distal left anterior descending. RECOMMENDATIONS: 1. ECASA -- indefinitely. 2. Prasugrel -- plan one year if well tolerated with ongoing cardiology followup; and to reassess at one year to consider prasugrel indefinitely given the long stented segment and diffuse disease. 3. OMT -- guideline-directed optimal medical therapy including aspirin, prasugrel, statin, beta-anibal and consideration of JAZMIN inhibitor. . Brief History Per HPI done by Dr. Gutiérrez on 03/13/16: Patient is a 60 year old female with a pmh of hyperlipidemia, hypertension, and depression that is presenting with a one day history of chest pain. Patient was moving hay in her yard when she had to stop due to overwhelming feelings of nausea. Patient went in her house and began to have intense chest pressure with pain radiating to her jaw and her arm. Patient became worried that this is something significant and called EMS to bring her to the hospital. Patient was moved to [place] and patient was evaluated. Patient was not seen to have any EKG changes that would suggest acute ischemia. Patient additionally had a negative troponin level. Patient was monitored while an in patient, and when a second troponin was obtained the value was seen to be higher than the previous. This prompted the hospitalist from [place] to call [facility] for transfer under the presumption that the patient had a STEMI. Patient was transferred here seen, to have a troponin level of .3 and no major ekg changes. Patient was seen by cardiology and the decision to admit the patient was made. The patient is currently stable, has no significant chest pain and is resting comfortably. . Hospital Course Venessa Pulido is a 60 year old female with a history of hypertension, hyperlipidemia and depression transferred from [facility] for elevated troponin and possible NSTEMI. Hospital day #3. 1. Acute NSTEMI, present on admission. Resolved. - Elevated troponin (peak at 0.293) and ECG suggestive of ischemia in the anterior leads. - Echocardiogram showing EF stage 1 diastolic dysfunction and basal anteroseptal , mid-anteroseptal, distal septal and apical akinesis as above. Repeat echocardiogram showing resolution of stage 1 diastolic dysfunction and resolution of basal anteroseptal, mid-anteroseptal, and distal septal with improvement in apical akinesis as above. - Heparin drip was continued until catheterization on 03/14/16. - Now status post percutaneous coronary intervention of left anterior descending x 3 stents, per Cardiology . - Continued aspirin, statin, beta anibal until time of discharge. Deferred re- initiation of ACEI or ARB to PCP. 2. Chronic hypertension, present on admission. Stable. - Continued to hold lisinopril in favor of beta anibal. - Continued Metoprolol tartrate 12.5mg daily. 3. Chronic hyperlipidemia, present on admission. Stable. - Patient has an established diagnosis of hyperlipidemia. - Continued atorvastatin 80mg daily until discharge. 4. Chronic depression, present on admission. Stable. - Continued sertraline 25mg daily. Held Desvenlafaxine succinate 25mg daily as it was not on hospital formulary and no equivalent available. . Exam Vital Signs (Last) Date Time Temp Pulse Resp B/P Pulse Ox O2 Delivery O2 Flow Rate FiO2 03/16/16 09:56 70 03/16/16 08:30 36.5 18 117/78 96 Room Air Exam General: Middle aged obese female lying in bed and in no acute distress, well- developed, well-nourished, appropriately interactive. HEENT: Normocephalic, atraumatic. Pupils equal, round, reactive to light. Anicteric sclerae, moist mucosa. Neck: Supple, no jugular venous distension, no bruits, no lymphadenopathy or thyromegaly. Cardiovascular: Regular rate and rhythm with no murmurs, rubs, or gallops appreciated. Pulmonary: Clear to auscultation bilaterally with no crackles, wheezes, or rhonchi. Normal respiratory effort with no use of accessory muscles. Abdomen: Soft, obese, bowel tones present, nontender, nondistended. No hepatosplenomegaly or masses appreciated. Extremities: No clubbing, cyanosis, or edema. Groin site clean, dry and without erythema. Skin: Normal temperature, turgor, and texture; no rash, ulcers, or subcutaneous nodules appreciated. Neurological: Cranial nerves grossly intact. Normal muscle strength, tone, and bulk. No known gait impairment. Psychiatric: Normal mood and affect. Alert and oriented to person, place, and time. . Test 03/13/16 05:00 03/13/16 07:25 03/14/16 00:48 03/14/16 03:20 Urine Color Yellow (YELLOW) Urine Appearance Clear (CLEAR,HAZY) Urine pH 6.0 (5.0-8.0) Urine Specific [place] 1.015 (1.003-1.035) Urine Protein Negativemg/dL (NEG,TRACE) Urine Glucose (UA) Negativemg/dL (NEGATIVE) Urine Ketones Negativemg/dL (NEGATIVE) Urine Occult Blood Trace (NEGATIVE) Urine Nitrite Negative (NEGATIVE) Urine Bilirubin Negative (NEGATIVE) Urine Urobilinogen Normalmg/dL (NORMAL) Urine Leukocyte Esterase Small (NEGATIVE) Urine RBC 3-10/hpf (0-2) Urine WBC 11-50/hpf (0-5) Urine Epithelial Cells Moderate/hpf (NONE-MOD) Urine Crystals None seen (NONE SEEN) Urine Bacteria None/hpf (NONE-FEW) Urine Hyaline Casts None/lpf (NONE) Urine Granular Casts None seen (NONE SEEN) Urine Waxy Casts None seen (NONE SEEN) Urine Red Blood Cell Casts None seen (NONE SEEN) Urine White Blood Cell Casts None seen (NONE SEEN) Urine Mucus Present (None Seen) Urine Trichomonas None seen (NONE SEEN) Urine Yeast None (NONE SEEN) Urine Culture Reflexed Indicated Hold Urine Received (Received) Total Creatine Kinase 170U/L (21-215) Creatine Kinase MB 10.1ng/mL (0.0-5.3) Creatine Kinase MB % 5.9% (0.0-5.0) Hold Robertson Top Tube Received (Received) Troponin T 0.175ug/L (0.0-0.011) Neutrophils (%) (Auto) 46.5% (40-74) Lymphocytes (%) (Auto) 38.6% (14-46) Monocytes (%) (Auto) 10.6% (4-12) Eosinophils (%) (Auto) 3.6% (0-5) Basophils (%) (Auto) 0.5% (0-3) Total Bilirubin 0.5mg/dL (0.0-1.2) Aspartate Amino Transf (AST/SGOT) 34U/L (0-50) Alanine Aminotransferase (ALT/SGPT) 33U/L (0-32) Alkaline Phosphatase 59U/L (25-165) Total Protein 6.0g/dL (6.4-8.4) Albumin 3.4g/dL (3.4-5.0) Test 03/14/16 10:25 03/16/16 03:45 Activated Partial Thromboplast Time 47.1sec (22.8-33.0) White Blood Count 6.8th/mm3 (3.8-10.1) Red Blood Count 3.79mil/mm3 (3.90-5.20) Hemoglobin 10.7g/dL (12.0-15.6) Hematocrit 33.1% (35.0-46.0) Mean Corpuscular Volume 87.3fL (81-100) Mean Corpuscular Hemoglobin 28.2pg (27.0-35.0) Mean Corpuscular Hemoglobin Concent 32.3% (32.0-37.0) Red Cell Distribution Width 13.0% (12.3-15.4) Platelet Count 191bil/L (150-400) Sodium Level 142mEq/L (134-144) Potassium Level 4.2mEq/L (3.5-5.2) Chloride Level 105mEq/L (97-108) Carbon Dioxide Level 25mmol/L (18-29) Blood Urea Nitrogen 11mg/dL (8-27) Creatinine 0.52mg/dL (0.57-1.00) Estimat Glomerular Filtration Rate 172mL/min (>59) Glucose Level 98mg/dL (60-99) Calcium Level 9.0mg/dL (8.5-10.1) Microbiology Results Urine culture growing Group B Streptococcus likely self pay representative of contamination. . Discharge Medications Discharge Medications Aspirin (Aspirin) 81 Mg Tablet 81 MG PO DAILY Prescribed by: ANNABEL ORTEGA DO Atorvastatin Calcium (Atorvastatin Calcium) 40 Mg Tablet 80 MG PO HS Prescribed by: ANNABEL ORTEGA DO Cholecalciferol (Vitamin D3) (Vitamin D3) 2,000 Unit Tablet 2,000 UNIT PO DAILY (Reported) Desvenlafaxine Succinate ER (Pristiq ER) 25 Mg Tablet 25 MG PO DAILY (Reported) Metoprolol Tartrate (Metoprolol Tartrate) 25 Mg Tablet 12.5 MG PO DAILY Prescribed by: ANNABEL ORTEGA DO Nitroglycerin SL (Nitrostat) 0.4 Mg Tab.subl 0.4 MG SL Q5MIN Prescribed by: ANNABEL ORTEGA DO Prasugrel HCl (Effient) 10 Mg Tablet 10 MG PO DAILY Prescribed by: ANNABEL ORTEGA DO Sertraline HCl (Zoloft) 25 Mg Tablet 25 MG PO DAILY (Reported) Additional med instructions New medications: Prasugrel 10 mg daily. Aspirin 81 mg daily. Atorvastatin 80 mg each bedtime. Metoprolol tartrate 12.5 mg daily. Nitroglycerin 0.4 mg sublingual every 5 minutes for chest pain. Continued medications: Vitamin D 3 2000 units daily. Pristiq ER 25 mg daily. Sertraline 25 mg daily. Discontinued medications: Atorvastatin 40 mg daily. Lisinopril 5 mg daily. Your having symptoms of acid reflux you may take famotidine or ranitidine as directed on the label at night. . Followup Plan Disposition: Home. . Follow-up plan Please follow-up closely with your PCP, Dr. Marie, in the next 1-2 weeks regarding your hospitalization. You will need to discuss restarting your lisinopril or equivalent medication in this class for hypertension (ACEI/ARB). You will also need to establish care with a awning spreader, Dr. Kelly, within the next 4 weeks regarding your heart attack. . Discharge Diet: Low fat, Low Sodium, Heart Healthy Discharge Activity: Limited until seen by PCP [facility] [place] Follow-up with PCP in: 1 week Provider: Janet Kelly MD Follow-up in: 4 weeks Attending Statement The patient was seen and examined together with Dr. Ortega on 03-16-16 and I agree with the history, exam and plan as outlined in the note above. Annabel Ortega DO Mar 16, 2016 17:16 Barron Carlin MD Mar 17, 2016 19:01
--- NOTE | 2016-03-17 19:28 | PROG NOTE ---
[address] [address] PROGRESS NOTE PATIENT: AGUSTINA ETIENNE : 1955 MR#: [id number] ADMIT: 03/13/2016 JOB ID: [id number] DATE: 03/17/2016 this issue came to my attention after discharge. The patient was prescribed Prasugrel which is the anti-platelet agent to prevent restenosis of the stents that were placed a few days ago. The patient apparently was given a prescription but after discharge it came to the attention of the resident that this medicine required a preauth and when we called the patient's pharmacy in [facility], additionally we tried to find other pharmacies that would have this medication and both our pharmacist and our pharmacist here at [facility] and the resident called several pharmacies and were informed that that they would be unable to supply that medicine for our patient if she presented a prescription. Our resident, Dr. Robertson, made several phone calls to the patient's cell phone of record leaving messages asking the patient to please call back. Our intention was to bring the patient back to our emergency department and give her the medication. She was due for that dose this morning. I checked this morning and our nursing supervisor sandblaster got no call back despite these messages. I have personally left a message myself on the patient's cell phone apparently could not identify name, . I have tried calling that number again and received no answer and received no answer back and I instructed the patient to please call our nursing supervisor sandblaster. It is currently 7 p.m. I have talked to our nursing supervisor sandblaster and our next attempt is our nursing supervisor sandblaster will contact the police and ask them to do a safety check on the patient as we have her address here. Our nursing supervisor sandblaster will field calls from the patient over the evening and refer to our nighttime hospitalist to bring her into the hospital and get her the medicine she needs. I have talked to Dr. Michael who will be taking over in the morning and if this issue is not resolved, he will pursue it further at 7 o'clock in the morning. AFIA
[2016-04-24] MEDS ORDERED: LISI10TA PO (17:31)
[2016-04-24] MEDS ORDERED: SERT20OR6 PO (17:31)
== END 2016-03-16 12:30 | disposition home or self-care (01) | DRG 247 ==
LOC: EDBD 01:51 → EDSTATUS 02:16 → CCU 02:22 → OFED 02:55 → PCC 14:35
PROVIDERS: ADMIT Internal Medicine Cardiovascular Disease; ATTEND Internal Medicine
PROC: 027036Z Dilation of Coronary Artery, One Artery with Three Drug-eluting Intraluminal Devices, Percutaneous Approach (ICD-10-PCS; principal; 2016-03-14)
PROC: B2111ZZ Fluoroscopy of Multiple Coronary Arteries using Low Osmolar Contrast (ICD-10-PCS; 2016-03-14)
DX: I21.4 Non-ST elevation (NSTEMI) myocardial infarction (principal); I10 Essential (primary) hypertension; E78.5 Hyperlipidemia, unspecified; I25.10 Atherosclerotic heart disease of native coronary artery without angina pectoris; F32.9 Major depressive disorder, single episode, unspecified; Z82.49 Family history of ischemic heart disease and other diseases of the circulatory system; Z87.891 Personal history of nicotine dependence

== ENCOUNTER 2016-04-25 01:04 | Day surgery (SDC) | payer OTHER ==
[~2016-04-25] VITALS: Ht 175.3 cm; Wt 106.0 kg
[2016-04-25] VITALS (10 sets, daily range): BP systolic 103–126; BP diastolic 55–83; PULSE 53–64; RESP 18–21; O2SAT 95–100
[~2016-04-25 01:04] MED LIST: ASPI-973 PO; ATOR40TA69 PO; CHOL200025 PO; DESV25TA PO; LISI10TA PO; METO25TA6 PO; NITR0.4T SL; PRAS10TA5 PO; SERT20OR6 PO
[2016-04-25] MEDS ORDERED: 0.9% Sodium Chloride 1,000 ML IV ONE (06:16)
--- NOTE | 2016-04-25 06:42 | NUR ---
Patient admitted for heart cath with . She is accompanied by her [id number].
[2016-04-25 06:57] LABS: BASOPHILS % (AUTO) 0.5 % (0-3); EOSINOPHILS % (AUTO) 3.6 % (0-5); MONOCYTES % (AUTO) 11.3 % (4-12); Mean Corpuscular Hemoglobin 29.4 pg (27.0-35.0); Mean Corpuscular Volume 86.9 fL (81-100); NEUTROPHILS % (AUTO) 52.2 % (40-74); Platelet Count 231 bil/L (150-400)
[2016-04-25] MEDS ORDERED: Heparin 1,000 Units/500 mL NS Premix IV ONE (08:03)
[2016-04-25] MEDS ORDERED: Heparin 5,000 Units/500 mL NS Premix IV ONE (08:03)
[2016-04-25] MEDS ORDERED: Isosorbide Mononitrate 30 mg ER24 Tablet PO ONE (11:20)
[2016-04-25] MEDS ORDERED: ATOR80TA PO (11:38)
[2016-04-25] MEDS ORDERED: METO25TA6 PO (11:38)
[2016-04-25] MEDS ORDERED: ASPI-973 PO (11:38)
[2016-04-25] MEDS ORDERED: PRAS10TA5 PO (11:38)
[2016-04-25] MEDS ORDERED: NITR0.4T6 SL (11:38)
[2016-04-25] MEDS ORDERED: CHOL200047 PO (11:39)
--- NOTE | 2016-04-25 12:13 | NUR ---
handoff at bedside to Mami Carvalho R.N. and Marianela Ng R.N.
--- NOTE | 2016-04-25 12:24 | CS94 ---
[address] [address] DIAGNOSTIC CARDIAC CATHETERIZATION PATIENT: AGUSTINA ETIENNE : 1955 MR# : [id number] ADMIT: 04/25/2016 JOB ID: [id number] PROCEDURE NOTE -- CARDIAC CATHETERIZATION LABORATORY: DATE OF PROCEDURE: April. GAS BLENDER: Juancho Muñoz MD. PROCEDURE: 1. Coronary Angiogram. CLINICAL DETAILS: This 60-year-old woman presents to the catheterization laboratory for diagnostic coronary angiogram because of abnormal ECG on treadmill. She had presented initially in early March with acute coronary syndrome with ACS with chest pain and elevated troponin. Echo showed anterior apical wall motion defect with preserved global LV function. 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 Coronary intervention included three stents to revascularize the diseased segment. There was slow flow in the distal small LAD. The patient had no further chest discomfort. She has been recuperating since then, and resuming activity. She has generally done well and had no further chest discomfort. The ECG normalized. The echo normalized nearly completely with resolution of most of the anterior wall motion defect. She came to attention again because of ECG changes noted on a treadmill when she started a cardiac rehab program. A treadmill only stress test was accomplished and was near maximal. She had T-wave inversions and ST depression in the inferolateral leads that was 1 mm or less. She has otherwise been doing well without angina. She feels somewhat out of shape; and noticed some dyspnea when increasing her activity on one occasion on the treadmill. She has had some aching in her bilateral trapezius and right pectoral area that she attributes to a higher dose of statin. PROCEDURAL DETAILS: I evaluated her in the [facility] Unit prior to the procedure. We discussed the plan to proceed with diagnostic coronary angiogram for definitive evaluation of her coronary anatomy and to guide options for any further intervention with medical therapy, further PCI, or doubtfully, coronary surgery. We discussed the procedure including possible risks and complications. We discussed bleeding, infection and blood clot; as well as injury to nerve, artery, vein, or kidney; and also arrhythmia, drug reaction; or Others. We discussed treatment as needed including surgery, pacemaker, or transfusion. We discussed more serious complications that are possible including stroke, heart attack, , and emergency surgery including transfer for bypass surgery. After our discussion and questions, she signed informed consent to proceed. She was brought to the catheterization laboratory, where she was prepped sterilely and draped. She had taken her daily dose of Prasugrel 10 mg, and aspirin 81 mg; and she tells me she has not missed her prasugrel at all. CORONARY ANGIOGRAM: Arterial access was obtained without difficulty with anterior wall access in the left common femoral artery using fluoroscopic localization over the femoral head and modified Seldinger technique to insert a 10 cm 6[place] side-arm sheath. A long J-tipped 0.035-inch guidewire was used to advance and exchange catheters. The left femoral artery was chosen because of a known fistula from a remote prior catheterization in the right femoral. First, the right coronary artery was engaged with a 6-[place] JR-4 diagnostic catheter. Then, the left coronary artery was engaged with a 6[place] JL-5 diagnostic catheter. Note moderately enlarged aortic root; and a 5 bend catheter fit well previously. Left ventricle not entered. Procedure without difficulty. Patient tolerated procedure well. No complications. A side-arm sheath angiogram showed adequate access in the left common femoral artery for a closure device. Arterial hemostasis was obtained without difficulty using an Angio-Seal device. She was transferred from the catheterization laboratory to the [facility] Unit for ongoing care and anticipated discharge later today, if stable. I discussed the procedure findings and ongoing management plans with the patient in detail. FINDINGS: 1. LMCA: The left main coronary artery is long, and intact. 2. LAD: The left anterior descending coronary artery is a large vessel that reaches the apex but not much around the apex. The LAD distribution includes a very large high diagonal that takes off at the first septal. The ongoing LAD distal to this bifurcation has a 40% plaque which is angiographically unimpressive and unchanged from before. The LAD is tortuous. The long stented segment is intact, with JESSE-3 flow into the stented segment. The small distal, and apical LAD appears narrow, and with decreased flow distal to the stented segment. Its appearance is similar to that after the initial intervention. There may be very faint collaterals from the right coronary to the distal LAD. 3. LCX: The left circumflex coronary artery is intact without obstructive lesions. Its distribution consists primarily of one moderate to large-sized OM. 4. RCA: Dominant. The right coronary artery is intact without angiographic lesions. RECOMMENDATIONS: 1. ECASA -- Indefinitely. 2. Prasugrel -- Continue prasugrel planned for one year with ongoing cardiology followup if well tolerated; and then reassess to continue. I discussed with the patient again to re-emphasized the critical importance of mandatory dual antiplatelet therapy; and not to stop prasugrel for any reason without immediate cardiology consultation. COMMENT: The distal LAD appears largely unchanged. Its appearance may be consistent with propagation of dissection. It is a very poor target for intervention given its small diameter, distal location, and underlying pathology of dissection. In as much as she appears to be doing well clinically, I elected medical therapy to include long-acting nitroglycerin preparation; and beta-anibal; and further monitoring of her performance status, and recuperation especially in the absence of angina currently. AFIA
--- NOTE | 2016-04-25 15:21 | NUR ---
Discharge Bedrest complete at 1300. Left groin without bleeding or hematoma. VSS. Up and ambulated to bathroom and in wright without change in groin. Discharge instructions given, See sheets. Verbalizes understanding. IVs discontinued intact. Discharged ambulatory with sister and all belongings in no distress at 1340.
== END 2016-04-25 23:59 | disposition home or self-care (01) ==
LOC: SOUO 01:04
PROVIDERS: ATTEND Internal Medicine Cardiovascular Disease
DX: R94.31 Abnormal electrocardiogram [ECG] [EKG] (principal); I25.10 Atherosclerotic heart disease of native coronary artery without angina pectoris; I25.2 Old myocardial infarction; Z95.5 Presence of coronary angioplasty implant and graft; E78.5 Hyperlipidemia, unspecified; Z79.82 Long term (current) use of aspirin; Z87.891 Personal history of nicotine dependence
CPT/HCPCS: 36415; 80048; 85025; 93005; 93454; 99152; C1760; C1769; J1200; J1644; J2060; J7030; Q9967